=== PATIENT | male | born 1960 | race Caucasian/White ===

== ENCOUNTER 2018-04-26 10:11 | Emergency (ER) | payer OTHER, SELFPAY ==
[2018-04-26] VITALS (7 sets, daily range): BP systolic 131–153; BP diastolic 72–82; PULSE 102–131; RESP 12–19; TEMP 37.6–39.5; O2SAT 95–100; BMI 28.3
--- NOTE | 2018-04-26 10:46 | PC.NURSE ---
pt reports, onset of chills, bodyaches, , pt with chronic bronchitis, reports, chest tightness for couple of days, has been working vacuuming well house,. pt alert, slow to responds. temp 103.1. reports, had tylenol at 430am. noted multiple areas with echymosis neck and back, (green yellow echymosis) from cupping.
--- NOTE | 2018-04-26 10:48 | PC.NURSE ---
by nursing care partner
--- NOTE | 2018-04-26 10:54 | ED_ITS ---
HPI - SOB/Dyspnea General Chief Complaint: Shortness of Breath/Dyspnea Stated Complaint: SENT FROM [facility] (DEHYDRATED) Time Seen by Provider: 04/26/18 10:20 Source: patient Mode of arrival: ambulatory Limitations: no limitations History of Present Illness 57-year-old male, nonsmoker with history of multiple neck problems presents with a chief complaint of fever, chills, headache, sore throat, dry hacking cough and body aches for the past 24 hr. He has had nausea but no vomiting. He feels terrible and generally weak. He called the [place] doctor and they were unable to get him in so they sent him here for evaluation and stabilization. MD Complaint: cough Onset (ago): hour(s) Severity: moderate Consistency/Duration: constant Relieving factors: nothing Exacerbating factors: exertion Associated symptoms: fever, cough and nausea/vomiting Treatment prior to arrival: none Related Data Home oxygen amount: none Home Medications Medication Instructions Recorded Confirmed aspirin 81 mg PO QDAY #0 12/14/15 lisinopril 10 mg PO DAILY #0 12/14/15 04/26/18 ibuprofen #0 08/04/16 ACETAMINOPHEN 325 mg PO Q4H #0 09/16/16 cetirizine 10 mg PO QDAY #0 09/16/16 atorvastatin 40 mg PO DAILY 04/26/18 04/26/18 oxycodone-acetaminophen 1 tab PO BEDTIME PRN 04/26/18 04/26/18 Previous Rx's Medication Instructions Recorded duloxetine [Cymbalta] 30 mg PO SEE INSTRUCTIONS PRN #30 08/04/16 cap tramadol 0 mg PO SEE INSTRUCTIONS #30 tab 08/04/16 oseltamivir [Tamiflu] 75 mg PO BID 5 Days #10 cap 04/26/18 Allergies Allergy/AdvReac Type Severity Reaction Status Date / Time ciprofloxacin [From CIPRO] Allergy Severe RASH, Verified 04/26/18 10:17 ITCHING metronidazole [METRONIDAZOLE] Allergy Mild RASH, Verified 04/26/18 10:17 ITCHING Review of Systems Constitutional Reports chills, Reports fever(s), Reports headache(s), Denies lethargy and Denies weakness Eyes Denies change in vision, Denies eye discharge, Denies irritation and Denies loss of vision ENT Ears, Nose, Mouth, and Throat: Denies change in voice, Reports headache(s), Denies neck pain and Reports sore throat Cardiovascular Denies chest pain, Denies irregular heart rhythm, Denies lightheadedness, Denies palpitations, Denies dyspnea, Denies dyspnea on exertion and Denies orthopnea Respiratory Reports cough, Denies dyspnea, Denies dyspnea on exertion and Denies wheezing Gastrointestinal Gastrointestinal: Denies abdominal pain, Denies change in bowel habits, Denies diarrhea, Denies nausea and Denies vomiting Genitourinary Denies hematuria, Denies flank pain, Denies urinary incontinence and Denies urinary urgency Musculoskeletal Denies neck pain Integumentary/Breasts Denies pruritus, Denies erythema, Denies rash and Denies wounds Neurologic Denies confusion, Reports headache(s), Denies loss of vision and Denies weakness Psychiatric Denies anxiety, Denies confusion, Denies depression, Denies homicidal ideation and Denies suicidal ideation Endocrine Denies palpitations Hematologic/Lymphatic Denies easy bruising Allergic/Immunologic Denies wheezing PFSH Social History Smoking Status: Never smoker Social History Smoking Status: Never smoker Exam Narrative Exam Narrative: GENERAL: 57-year-old male, appears younger than stated age, appears to feel unwell. HEAD: Atraumatic. Normocephalic. No temporal or scalp tenderness. EYES: Pupils equal round and reactive. Extraocular motions intact. No scleral icterus. No injection or drainage. ENT: Nose without bleeding, purulent drainage or septal hematoma. Throat without erythema, tonsillar hypertrophy or exudate. Uvula midline. Airway patent. NECK: Trachea midline. No JVD or lymphadenopathy. Supple, nontender, no meningeal signs. CARDIOVASCULAR: Regular rate and rhythm without murmurs, gallops, or rubs. RESPIRATORY: Clear to auscultation. Breath sounds equal bilaterally. No wheezes, rales, or rhonchi. GASTROINTESTINAL: Abdomen soft, non-tender, nondistended. No hepato- splenomegaly, or palpable masses. No guarding. EXTREMITIES: No clubbing, cyanosis, or edema. No joint tenderness, effusion, or edema noted. BACK: Nontender without deformity or crepitance. No flank tenderness. NEURO: AOx3. SKIN: No rash or erythema. Initial Vital Signs Initial Vital Signs: Vital Signs Temperature 99.6 F 04/26/18 10:17 Pulse Rate 106 H 04/26/18 10:17 Respiratory Rate 16 04/26/18 10:17 Blood Pressure 153/72 H 04/26/18 10:17 Pulse Oximetry 97 04/26/18 10:17 Course Orders Ordered: ED Orders 04/26/18 10:32 Basic Metabolic Panel Stat Complete Blood Count AUTO DIFF Stat Procalcitonin Stat 04/26/18 10:36 Influenza A and B by PCR Rapid Stat 04/26/18 10:52 XR chest 2V Stat Discontinued Medications Sodium Chloride (Normal Saline 0.9%) 1,000 mls @ 1,000 mls/hr IV BOLUS ONE Stop: 04/26/18 11:50 Last Admin: 04/26/18 11:13 Dose: 1,000 mls/hr Ketorolac Tromethamine (Toradol) 15 mg IV NOW ONE Stop: 04/26/18 10:52 Last Admin: 04/26/18 11:13 Dose: 15 mg Vital Signs - 8 hr 04/26/18 10:17 04/26/18 11:03 04/26/18 11:18 Temperature 99.6 F 103.1 F H Pulse Rate 106 H 108 H 102 H Respiratory Rate 16 19 16 Blood Pressure 153/72 H Blood Pressure [Left Arm] 136/82 136/79 Pulse Oximetry 97 100 96 MDM - SOB/Dyspnea Lab Data Result diagrams: 04/26/18 10:32 04/26/18 10:32 Lab Results 04/26/18 04/26/18 04/26/18 Range/Units 10:32 10:32 10:32 WBC 4.3 L (4.5-11.0) X10^3/uL RBC 5.02 (4.5-5.9) X10^6/uL Hgb 14.7 (13.5-17.5) g/dL Hct 42.3 (41-53) % MCV 84.3 (80-100) fL MCH 29.4 (26-34) PG MCHC 34.8 (30-36) % RDW 13.1 (11.6-14.8) % Plt Count 138 L (150-400) X10^3/uL Neut % (Auto) 77.3 H (50-75) % Lymph % (Auto) 7.8 L (25-40) % [place] % (Auto) 14.4 H (3-14) % Eos % (Auto) 0.2 L (2-4) % Baso % (Auto) 0.3 (0-2) % Neut # (Auto) 3400 (7394-0156) /uL Lymph # (Auto) 300 L (4475-2519) /uL [place] # (Auto) 600 (0-900) /uL Eos # (Auto) 0 (0-450) /uL Baso # (Auto) 0 (0-100) /uL Sodium 134 L (137-145) mmol/L Potassium 3.9 (3.4-5.1) mmol/L Chloride 96 L (98-107) mmol/L Carbon Dioxide 27 (22-32) mmol/L BUN 11 (9-20) mg/dL Creatinine 1.00 (0.66-1.25) mg/dL Estimated GFR > 60.0 (>60) mL/min BUN/Creatinine Ratio 11.0 (6-22) Glucose 101 H (70-100) mg/dL Calcium 9.0 (8.4-10.2) mg/dL Procalcitonin < 0.05 (<0.5) ng/mL Influenza A & B (PCR) (Negative) 04/26/18 Range/Units 10:36 WBC (4.5-11.0) X10^3/uL RBC (4.5-5.9) X10^6/uL Hgb (13.5-17.5) g/dL Hct (41-53) % MCV (80-100) fL MCH (26-34) PG MCHC (30-36) % RDW (11.6-14.8) % Plt Count (150-400) X10^3/uL Neut % (Auto) (50-75) % Lymph % (Auto) (25-40) % [place] % (Auto) (3-14) % Eos % (Auto) (2-4) % Baso % (Auto) (0-2) % Neut # (Auto) (8291-3665) /uL Lymph # (Auto) (4972-6617) /uL [place] # (Auto) (0-900) /uL Eos # (Auto) (0-450) /uL Baso # (Auto) (0-100) /uL Sodium (137-145) mmol/L Potassium (3.4-5.1) mmol/L Chloride (98-107) mmol/L Carbon Dioxide (22-32) mmol/L BUN (9-20) mg/dL Creatinine (0.66-1.25) mg/dL Estimated GFR (>60) mL/min BUN/Creatinine Ratio (6-22) Glucose (70-100) mg/dL Calcium (8.4-10.2) mg/dL Procalcitonin (<0.5) ng/mL Influenza A & B (PCR) Positive, type a A (Negative) Urine Dip Bedside Urine Glucose Negative Bedside Urine Bilirubin - Negative Bedside Urine Ketone - Negative Urine Specific [place] 1.015 Bedside Urine Occult Blood +/- Bedside Urine pH 8 Bedside Urine Protein - Negative Bedside Urine Urobilinogen - Negative Bedside Urine Nitrite - Negative Bedside Urine Leukocytes - Negative Esterase Imaging Data Chest x-ray: Radiologist's impression: [address] [address] XRay Report Signed Patient: Yo Malagon [facility]#: [id number] : [id number]:[id number] Age/Sex: 57 / MDate of Service: 04/26/18 Loc: ED Accession Number: [id number] Procedure: XR chest 2V Ordering Provider: Kayden Canales D.O. PROCEDURE: XR CHEST 2V INDICATIONS: SOB, cough, fever TECHNIQUE: 2 views of the chest were acquired. COMPARISON: [facility], CHEST 1 VIEW, 09/16/2016, 19:32. FINDINGS: Surgical changes and devices: None. Lungs and pleura: Lungs are clear. No pleural effusions or pneumothorax. Mediastinum: Mediastinal contours are normal. Heart size is normal. Bones and chest wall: No suspicious bony abnormalities. Soft tissues appear unremarkable. IMPRESSION: Negative chest. No acute cardiopulmonary process is evident. Dictated by: Ben Chew M.D. on 04/26/2018 at 10:42 Approved by: Ben Chew M.D. on 04/26/2018 at 10:42 Discharge Plan Departure Patient Disposition: Home Clinical Impression: Influenza A Instructions: DI for Influenza -- Adult Activity Restrictions/Additional Instructions: *You have been diagnosed with [influenza a ] *What to do: *Take medications as directed *Follow up with your primary care provider in 2-3 days, call for an appointment. Let them know you were seen in the Emergency Department and that we ask that you be seen in follow up *Return to ER if you should have any new, worsening or concerning symptoms Prescriptions: New oseltamivir [Tamiflu] 75 mg capsule 75 mg PO BID 5 Days Qty: 10 RF: 0 No Action aspirin 81 MG tablet,delayed release (DR/EC) 81 mg PO QDAY Qty: 0 RF: 0 lisinopril 10 MG tablet 10 mg PO DAILY Qty: 0 RF: 0 ibuprofen 400 MG tablet Qty: 0 RF: 0 tramadol 50 MG tablet PO SEE INSTRUCTIONS Qty: 30 RF: 0 duloxetine [Cymbalta] 30 MG capsule,delayed release(DR/EC) 30 mg PO SEE INSTRUCTIONS PRNQty: 30 RF: 0 cetirizine 10 MG tablet 10 mg PO QDAY Qty: 0 RF: 0 ACETAMINOPHEN 325 mg PO Q4H Qty: 0 RF: 0 atorvastatin 40 mg tablet 40 mg PO DAILY RF: 0 oxycodone-acetaminophen 5-325 mg tablet 1 tab PO BEDTIME PRN (Reason: pain) RF: 0 Referrals: Josse Luna, [Primary Care Provider] -
[2018-04-26 11:00] LABS: Add Manual Diff / Slide Review NO; Basophils Absolute Auto 0 /uL (0-100); Basophils Percent Auto 0.3 % (0-2); Eosinophils Absolute Auto 0 /uL (0-450); Eosinophils Percent Auto 0.2 % (2-4); Hematocrit 42.3 % (41-53); Hemoglobin 14.7 g/dL (13.5-17.5); Lymphocytes Absolute Auto 300 /uL (1100-4500); Lymphocytes Percent Auto 7.8 % (25-40); Mean Corpuscular HGB Conc 34.8 % (30-36); Mean Corpuscular Hemoglobin 29.4 PG (26-34); Mean Corpuscular Volume 84.3 fL (80-100); Monocytes Absolute Auto 600 /uL (0-900); Monocytes Percent Auto 14.4 % (3-14); Neutrophils Absolute Auto 3400 /uL (1500-7000); Neutrophils Percent Auto 77.3 % (50-75); Platelet Count 138 X10^3/uL (150-400); Red Blood Cell Count 5.02 X10^6/uL (4.5-5.9); Red Cell Distribution Width 13.1 % (11.6-14.8); White Blood Cell Count 4.3 X10^3/uL (4.5-11.0)
[2018-04-26 11:06] LABS: Blood Urea Nitrogen 11 mg/dL (9-20); Carbon Dioxide 27 mmol/L (22-32); Chloride 96 mmol/L (98-107); Estimated Glomerular Filt Rate > 60.0 mL/min (>60); Glucose 101 mg/dL (70-100); HEMOLYSIS < 15 (0-50); Potassium 3.9 mmol/L (3.4-5.1); Sodium 134 mmol/L (137-145)
[2018-04-26] MEDS: SODIUM CHLORIDE 0.9% 1,000 ML 1000 ML IV (11:13)
[2018-04-26] MEDS: KETOROLAC 60 MG/2 ML VIAL 15 MG IV (11:13)
[2018-04-26 11:27] LABS: Procalcitonin < 0.05 ng/mL (<0.5)
--- NOTE | 2018-04-26 12:04 | PC.NURSE ---
pt infusing normal saline, heart rate at 130's, pt tolerating drinking water , denies nausea. temp 100.6
== END 2018-04-26 12:38 | disposition home or self-care (01) ==
PROVIDERS: Emergency Provider Emergency Medicine; Family Provider Orthopaedic Surgery; PCP Orthopaedic Surgery
DX: J10.1 Influenza due to other identified influenza virus with other respiratory manifestations (principal)
CPT/HCPCS: 36591; 71046; 80048; 81003; 84145; 85025; 87400; 93005; 93041; 96361; 96374; 99284; 99285; J1885

== ENCOUNTER 2019-12-27 10:24 | Emergency (ER) | payer OTHER, SELFPAY ==
[2019-12-27] VITALS (10 sets, daily range): BP systolic 127–156; BP diastolic 76–85; PULSE 68–77; RESP 16–18; TEMP 37; O2SAT 95–98; BMI 27.4
--- NOTE | 2019-12-27 11:02 | PC.NURSE ---
Pt here with R flank/abdominal pain and low urine output
--- NOTE | 2019-12-27 11:30 | DI.US.S_ITS ---
PROCEDURE: US RENAL COMPLETE INDICATIONS: R sided stone, dx two days ago, inc flank pain TECHNIQUE: Real-time scanning was performed of the kidneys and bladder, with image documentation. COMPARISON: [facility], CR, SPINE LUMB 2 OR 3VW, 04/27/2016, 15:12. [facility], MR, L-SPINE WITHOUT CONTRAST, 04/15/2016, 15:51. [facility], CR, XR KUB, 12/27/2019, 11:25. FINDINGS: Kidneys: Kidneys are normal in size. Right kidney measures 11.6 cm long; left kidney measures 11.1 cm long. Right renal cortical thickness is 1.7 cm; left renal cortical thickness is 1.9 cm. Renal cortical echotexture is normal. No solid renal mass. Mild right kidney hydronephrosis. No hydronephrosis on the left. Bladder: Patient is unable to void. Bladder is mostly decompressed. 20 cc volume. There is a 8 mm calculus at the right bladder. Miscellaneous: No free pelvic fluid. IMPRESSION: Mild right hydronephrosis. 8 mm calculus at the right lateral bladder is suspicious for obstructing calculus. Dictated by: Prudencio Crews M.D. on 12/27/2019 at 12:48 Approved by: Prudencio Crews M.D. on 12/27/2019 at 12:51
--- NOTE | 2019-12-27 11:30 | DI.RAD.S_ITS ---
PROCEDURE: XR KUB INDICATIONS: R sided kidney stone x 2 days TECHNIQUE: One view of the abdomen acquired. COMPARISON: [facility] [place], CR, SPINE LUMB 2 OR 3VW, 04/27/2016, 15:12. FINDINGS: Surgical changes and devices: None. Bowel: Bowel gas pattern is normal. Soft tissues: There is a calculus in the region of the right bladder measuring approximately 0.3 cm which is new compared to radiograph from 2017. No suspicious abdominal calcifications. Visualized solid organ contours appear normal in size. Bones: No suspicious bony lesions. IMPRESSION: Suspect small obstructing calculus at the right UVJ. If clinically indicated findings could be confirmed with CT KUB. Dictated by: Prudencio Crews M.D. on 12/27/2019 at 12:51 Approved by: Prudencio Crews M.D. on 12/27/2019 at 12:52
[2019-12-27 11:37] LABS: Add Manual Diff / Slide Review NO; Basophils Absolute Auto 0 /uL (0-100); Basophils Percent Auto 0.1 % (0-2); Eosinophils Absolute Auto 0 /uL (0-450); Eosinophils Percent Auto 0.1 % (2-4); Hematocrit 40.4 % (41-53); Hemoglobin 13.8 g/dL (13.5-17.5); Lymphocytes Absolute Auto 800 /uL (1100-4500); Lymphocytes Percent Auto 7.7 % (25-40); Mean Corpuscular HGB Conc 34.1 % (30-36); Mean Corpuscular Hemoglobin 28.9 PG (26-34); Mean Corpuscular Volume 84.6 fL (80-100); Monocytes Absolute Auto 900 /uL (0-900); Monocytes Percent Auto 8.8 % (3-14); Neutrophils Absolute Auto 8600 /uL (1500-7000); Neutrophils Percent Auto 83.3 % (50-75); Platelet Count 181 X10^3/uL (150-400); Red Blood Cell Count 4.77 X10^6/uL (4.5-5.9); Red Cell Distribution Width 13.4 % (11.6-14.8); White Blood Cell Count 10.4 X10^3/uL (4.5-11.0)
[2019-12-27] MEDS: ONDANSETRON 4 MG/2 ML INJ IV (11:39)
[2019-12-27] MEDS: HYDROMORPHONE 1 MG INJ 0.5 MG IV (11:39)
[2019-12-27] MEDS: SODIUM CHLORIDE 0.9% 1,000 ML 1000 ML IV (11:39)
[2019-12-27 11:42] LABS: Alanine Aminotransferase 36 IU/L (<50); Albumin 4.2 g/dL (3.5-5.0); Albumin Globulin Ratio 1.3 (1.0-2.8); Alkaline Phosphatase 70 U/L (38-126); Amylase 104 U/L (30-110); Aspartate Aminotransferase 39 IU/L (17-59); BUN Creatinine Ratio 13.6 (6-22); Bilirubin Total 1.4 mg/dL (0.2-1.3); Blood Urea Nitrogen 15 mg/dL (9-20); Calcium 9.1 mg/dL (8.4-10.2); Carbon Dioxide 31 mmol/L (22-32); Chloride 97 mmol/L (98-107); Estimated Glomerular Filt Rate > 60.0 mL/min (>60); Globulin 3.3 g/dL (1.7-4.1); Glucose 130 mg/dL (70-100); HEMOLYSIS 23 (0-50); Lipase 108 U/L (23-300); Potassium 4.3 mmol/L (3.4-5.1); Sodium 132 mmol/L (137-145); Total Protein 7.5 g/dL (6.3-8.2)
[2019-12-27 11:58] LABS: Appearance Urine UA Slightly Cloudy; Color Urine UA ORANGE
[2019-12-27 12:08] LABS: Amorphous Sediment Urine 3+; Bacteria Urine Occasional (0-1); Culture Indicated Urine Specimen Cultured; RBC Urine 5-10/HPF (0-5/HPF); WBC Urine 0-1/HPF (0-5/HPF)
--- NOTE | 2019-12-27 12:38 | ED.MALEGU ---
HPI - Male Genitourinary <Miranda Davies, [employer]-BC - Last Filed: 12/27/19 14:53> General Chief complaint: Urogenital-Male Stated complaint: Kidney stone Lower Right side Time Seen by Provider: 12/27/19 10:31 Source: patient Mode of arrival: Family Vehicle Limitations: no limitations History of Present Illness HPI Narrative: The patient is a 59-year-old male nonsmoker with history of hypertension hyperlipidemia who presents with a chief complaint of a kidney stone his right side. He was seen and evaluated in outside facility at [facility] on Monday. He states he was going to follow up with primary care provider, who could refer him to Urology. He denies any dysuria but states he is taking [id number] azo. He took prescribed Percocet just prior to arrival. He complains of nausea, no vomiting. He is mostly concerned about his kidney function as he states that he did this decreased urine output yesterday. He is also concerned about kidney function. The [place] a urology referral Related Data Home Medications Medication Instructions Recorded Confirmed aspirin 81 mg PO QDAY #0 12/14/15 lisinopril 10 mg PO DAILY #0 12/14/15 04/26/18 ibuprofen #0 08/04/16 ACETAMINOPHEN 325 mg PO Q4H #0 09/16/16 cetirizine 10 mg PO QDAY #0 09/16/16 atorvastatin 40 mg PO DAILY 04/26/18 04/26/18 oxycodone-acetaminophen 1 tab PO BEDTIME PRN 04/26/18 04/26/18 Previous Rx's Medication Instructions Recorded duloxetine [Cymbalta] 30 mg PO SEE INSTRUCTIONS PRN #30 08/04/16 cap tramadol 0 mg PO SEE INSTRUCTIONS #30 tab 08/04/16 ketorolac 10 mg PO TID PRN #14 tab 12/27/19 ondansetron 4 mg PO Q6H PRN #14 tab 12/27/19 oxycodone-acetaminophen [Percocet] 1 tab PO Q4-6H PRN #7 tab 12/27/19 Allergies Allergy/AdvReac Type Severity Reaction Status Date / Time ciprofloxacin [From CIPRO] Allergy Severe RASH, Verified 12/27/19 10:42 ITCHING metronidazole [METRONIDAZOLE] Allergy Mild RASH, Verified 12/27/19 10:42 ITCHING Review of Systems <[facility] - Last Filed: 12/27/19 14:53> Review of Systems Narrative: GENERAL: Denies chills, fatigue, malaise, fever, sweats. HEENT: Denies sinus pain, ear pain, sore throat, difficulty swallowing, dizziness. RESPIRATORY: Denies dyspnea, cough, wheezing, hemoptysis, sputum. CARDIOVASCULAR: Denies chest pain, palpitations, orthopnea, edema, GASTROINTESTINAL: See HPI : Denies dysuria, frequency, incontinence, hematuria, urinary retention. MUSCULOSKELETAL: denies weakness, joint pain, or bony pain SKIN: Denies rash, skin lesions, or other NEUROLOGIC: Denies weakness, headache, numbness, change in speech, confusion, seizures, incoordination. PSYCHIATRIC: No concerning psychosocial issues. 12 point review of systems is negative except for those stated above Patient History <[facility]PR[facility] - Last Filed: 12/27/19 14:53> Social History Smoking Status: Never smoker Smoking Status: Never smoker alcohol intake frequency: 0-2 drinks per day Substance Use Type: does not use Exam <[facility] - Last Filed: 12/27/19 14:53> Narrative Exam Narrative: GENERAL: This is a well-nourished, well-developed patient, in no acute distress HEAD: Atraumatic. Normocephalic. No temporal or scalp tenderness. EYES: Pupils equal round and reactive. Extraocular motions intact. No scleral icterus. No injection or drainage. ENT: Nose without bleeding, purulent drainage or septal hematoma. Throat without erythema, tonsillar hypertrophy or exudate. Uvula midline. Airway patent. Wearing a mask. NECK: Trachea midline. No JVD or lymphadenopathy. Supple, nontender, no meningeal signs. CARDIOVASCULAR: Regular rate and rhythm without murmurs, gallops, or rubs. RESPIRATORY: Clear to auscultation. Breath sounds equal bilaterally. No wheezes, rales, or rhonchi. No cough. No increased respiratory effort. No accessory muscle use. GASTROINTESTINAL: Abdomen soft, diffuse tenderness to right lower quadrant palpation, nondistended. No hepato-splenomegaly, or palpable masses. No guarding. Active bowel sounds all 4 quadrants EXTREMITIES: No clubbing, cyanosis, or edema. No joint tenderness, effusion, or edema noted. BACK: Nontender without deformity or crepitance. No flank tenderness. NEURO: AOx3. SKIN: No rash or erythema on visible skin Initial Vital Signs Initial Vital Signs: Vital Signs Blood Pressure 156/76 H 12/27/19 10:29 <Xiomara Lora DO - Last Filed: 12/29/19 07:03> Initial Vital Signs Initial Vital Signs: Vital Signs Blood Pressure 156/76 H 12/27/19 10:29 Scores <BHUMI GrullonBC - Last Filed: 12/27/19 14:53> GCS Davidson coma scale eye opening: Spontaneous Davidson coma scale verbal response: Orientated Davidson coma scale motor response: Obey commands Davidson coma scale total score: 15 Course <BHUMI GrullonBC - Last Filed: 12/27/19 14:53> Course Course Narrative: Review noted imaging or lab work from outside facility obtained on 12/23/2019. Creatinine at that point is 1.0. Imaging concerning for 4 middle and calculus at the right UVJ with mild right-sided hydronephrosis. Orders Ordered: Discontinued Medications Hydromorphone HCl (Dilaudid) 0.5 mg IV NOW ONE Stop: 12/27/19 11:30 Last Admin: 12/27/19 11:39 Dose: 0.5 mg Documented by: HORACEINOR Sodium Chloride (Normal Saline 0.9%) 1,000 mls @ 1,000 mls/hr IV BOLUS ONE Stop: 12/27/19 12:28 Last Infusion: 12/27/19 12:41 Dose: 0 mls/hr Documented by: Admin: 12/27/19 11:39 Dose: 1,000 mls/hr Documented by: MMINOR Ketorolac Tromethamine (Toradol) 30 mg IV NOW ONE Stop: 12/27/19 13:24 Last Admin: 12/27/19 13:28 Dose: 30 mg Documented by: MMINOR Ondansetron HCl (Zofran) 4 mg IV NOW ONE Stop: 12/27/19 11:30 Last Admin: 12/27/19 11:39 Dose: 4 mg Documented by: MMINOR Vital Signs Vital signs: Vital Signs - 8 hr 12/27/19 10:29 12/27/19 10:30 12/27/19 10:35 Temperature 98.6 F Pulse Rate 77 69 Respiratory Rate 18 Blood Pressure 156/76 H 156/76 H Pulse Oximetry 98 98 12/27/19 11:00 12/27/19 11:30 12/27/19 12:10 Temperature Pulse Rate 69 68 73 Respiratory Rate Blood Pressure 129/80 131/80 Pulse Oximetry 95 97 98 12/27/19 12:30 12/27/19 13:00 12/27/19 13:30 Temperature Pulse Rate 68 68 77 Respiratory Rate Blood Pressure 127/78 130/76 Pulse Oximetry 96 96 98 12/27/19 13:51 Temperature Pulse Rate 73 Respiratory Rate 16 Blood Pressure 133/85 Pulse Oximetry 98 <Xiomara Lora DO - Last Filed: 12/29/19 07:03> Orders Ordered: Discontinued Medications Hydromorphone HCl (Dilaudid) 0.5 mg IV NOW ONE Stop: 12/27/19 11:30 Last Admin: 12/27/19 11:39 Dose: 0.5 mg Documented by: TIFFANIE Sodium Chloride (Normal Saline 0.9%) 1,000 mls @ 1,000 mls/hr IV BOLUS ONE Stop: 12/27/19 12:28 Last Infusion: 12/27/19 12:41 Dose: 0 mls/hr Documented by: Admin: 12/27/19 11:39 Dose: 1,000 mls/hr Documented by: TIFFANIE Ketorolac Tromethamine (Toradol) 30 mg IV NOW ONE Stop: 12/27/19 13:24 Last Admin: 12/27/19 13:28 Dose: 30 mg Documented by: TIFFANIE Ondansetron HCl (Zofran) 4 mg IV NOW ONE Stop: 12/27/19 11:30 Last Admin: 12/27/19 11:39 Dose: 4 mg Documented by: TIFFANIE Vital Signs Vital signs: Vital Signs - 8 hr 12/27/19 10:29 12/27/19 10:30 12/27/19 10:35 Temperature 98.6 F Pulse Rate 77 69 Respiratory Rate 18 Blood Pressure 156/76 H 156/76 H Pulse Oximetry 98 98 12/27/19 11:00 12/27/19 11:30 12/27/19 12:10 Temperature Pulse Rate 69 68 73 Respiratory Rate Blood Pressure 129/80 131/80 Pulse Oximetry 95 97 98 12/27/19 12:30 12/27/19 13:00 12/27/19 13:30 Temperature Pulse Rate 68 68 77 Respiratory Rate Blood Pressure 127/78 130/76 Pulse Oximetry 96 96 98 12/27/19 13:51 Temperature Pulse Rate 73 Respiratory Rate 16 Blood Pressure 133/85 Pulse Oximetry 98 MDM - Male Genitourinary <Miranda Davies, [employer]NER- - Last Filed: 12/27/19 14:53> Lab Data Attestation: I reviewed the patient's lab results. Result diagrams: 12/27/19 10:30 12/27/19 10:30 Labs: Lab Results 12/27/19 12/27/19 12/27/19 Range/Units 10:30 10:30 11:50 WBC 10.4 (4.5-11.0) X10^3/uL RBC 4.77 (4.5-5.9) X10^6/uL Hgb 13.8 (13.5-17.5) g/dL Hct 40.4 L (41-53) % MCV 84.6 (80-100) fL MCH 28.9 (26-34) PG MCHC 34.1 (30-36) % RDW 13.4 (11.6-14.8) % Plt Count 181 (150-400) X10^3/uL Neut % (Auto) 83.3 H (50-75) % Lymph % (Auto) 7.7 L (25-40) % Nuckolls % (Auto) 8.8 (3-14) % Eos % (Auto) 0.1 L (2-4) % Baso % (Auto) 0.1 (0-2) % Neut # (Auto) 8600 H (6078-8824) /uL Lymph # (Auto) 800 L (7865-0904) /uL Nuckolls # (Auto) 900 (0-900) /uL Eos # (Auto) 0 (0-450) /uL Baso # (Auto) 0 (0-100) /uL Sodium 132 L (137-145) mmol/L Potassium 4.3 (3.4-5.1) mmol/L Chloride 97 L (98-107) mmol/L Carbon Dioxide 31 (22-32) mmol/L BUN 15 (9-20) mg/dL Creatinine 1.10 (0.66-1.25) mg/dL Estimated GFR > 60.0 (>60) mL/min BUN/Creatinine Ratio 13.6 (6-22) Glucose 130 H (70-100) mg/dL Calcium 9.1 (8.4-10.2) mg/dL Total Bilirubin 1.4 H (0.2-1.3) mg/dL AST 39 (17-59) IU/L ALT 36 (<50) IU/L Alkaline Phosphatase 70 (38-126) U/L Total Protein 7.5 (6.3-8.2) g/dL Albumin 4.2 (3.5-5.0) g/dL Globulin 3.3 (1.7-4.1) g/dL Albumin/Globulin Ratio 1.3 (1.0-2.8) Amylase 104 (30-110) U/L Lipase 108 (23-300) U/L Urine Color Jackson Urine Appearance Slightly cloudy Urine pH Gut Dropper Ur Specific [place] Gut Dropper Urine Protein Gut Dropper Urine Glucose (UA) Gut Dropper Urine Ketones Gut Dropper Urine Occult Blood Gut Dropper Urine Nitrate Gut Dropper Urine Bilirubin Gut Dropper Urine Urobilinogen Gut Dropper Ur Leukocyte Esterase Gut Dropper Urine RBC 5-10/hpf H (0-5/HPF) Urine WBC 0-1/hpf (0-5/HPF) Amorphous Sediment 3+ Urine Bacteria Occasional (0-1) (None) Ur Culture Indicated? Specimen cultured Imaging Data Renal ultrasound: Radiologist's Impression: [facility] [address] [place] [id number] Ultrasound Report Signed Patient: Yo Malagon [facility]#: [id number] : 1Acct:[id number] Age/Sex: 59 / MDate of Service: 12/27/19 Loc: ED Accession Number: [id number] Procedure: US renal complete Ordering Provider: Miranda Davies-BC PROCEDURE: US RENAL COMPLETE INDICATIONS: R sided stone, dx two days ago, inc flank pain TECHNIQUE: Real-time scanning was performed of the kidneys and bladder, with image documentation. COMPARISON: [facility] , SPINE LUMB 2 OR 3VW, 04/27/2016, 15:12. [facility], MR, L-SPINE WITHOUT CONTRAST, 04/15/2016, 15:51. [facility], CR, XR KUB, 12/27/2019, 11:25. FINDINGS: Kidneys: Kidneys are normal in size. Right kidney measures 11.6 cm long; left kidney measures 11.1 cm long. Right renal cortical thickness is 1.7 cm; left renal cortical thickness is 1.9 cm. Renal cortical echotexture is normal. No solid renal mass. Mild right kidney hydronephrosis. No hydronephrosis on the left. Bladder: Patient is unable to void. Bladder is mostly decompressed. 20 cc volume. There is a 8 mm calculus at the right bladder. Miscellaneous: No free pelvic fluid. IMPRESSION: Mild right hydronephrosis. 8 mm calculus at the right lateral bladder is suspicious for obstructing calculus. Dictated by: Prudencio Crews M.D. on 12/27/2019 at 12:48 Approved by: Prudencio Crews M.D. on 12/27/2019 at 12:51 XR KUB: Radiologist's Impression: [address] [place] [id number] XRay Report Signed Patient: Yo Malagon [facility]#: [id number] : 1960cct:[id number] Age/Sex: 59 / MDate of Service: 12/27/19 Loc: ED Accession Number: [id number] Procedure: XR KUB Ordering Provider: Miranda Davies PROCEDURE: XR KUB INDICATIONS: R sided kidney stone x 2 days TECHNIQUE: One view of the abdomen acquired. COMPARISON: [facility], , SPINE LUMB 2 OR 3VW, 04/27/2016, 15:12. FINDINGS: Surgical changes and devices: None. Bowel: Bowel gas pattern is normal. Soft tissues: There is a calculus in the region of the right bladder measuring approximately 0.3 cm which is new compared to radiograph from 2017. No suspicious abdominal calcifications. Visualized solid organ contours appear normal in size. Bones: No suspicious bony lesions. IMPRESSION: Suspect small obstructing calculus at the right UVJ. If clinically indicated findings could be confirmed with CT KUB. Dictated by: Prudencio Crews M.D. on 12/27/2019 at 12:51 Approved by: Prudencio Crews M.D. on 12/27/2019 at 12:52 [facility] [place] Narrative Medical decision making narrative: The patient is a 59-year-old male who presents with a chief complaint of continued right lower quadrant pain and decreased urine output since being times with the kidney stone 4 days ago at an outside facility. Records were reviewed, patient's lab work is reassuring with his creatinine of 1.1. Four days ago was 1.0. Given the knee just head CT, elected to hold off on repeat CT at this point time. Ultrasound and KUB x-ray are concerning for small bite ureteral stone, possibility of stone and bladder as well. However patient is hemodynamically stable, afebrile, the renal function and no signs of urinary tract infection or infected stone. I encouraged him to follow up with primary care provider in the next few days and he may benefit from the urology referral being done by the PCP at this point time. Patient was given prescriptions of ketorolac and Zofran, did give a small continuation of his Percocet as well. Discussed at length coming back to the ER for acute concerns such as signs of infection, inability keep down fluids etcetera. Patient has no questions or concerns upon discharge and states understanding return precautions as well as follow-up care. <Xiomara Lora, - Last Filed: 12/29/19 07:03> Lab Data Labs: Lab Results 12/27/19 12/27/19 12/27/19 Range/Units 10:30 10:30 11:50 WBC 10.4 (4.5-11.0) X10^3/uL RBC 4.77 (4.5-5.9) X10^6/uL Hgb 13.8 (13.5-17.5) g/dL Hct 40.4 L (41-53) % MCV 84.6 (80-100) fL MCH 28.9 (26-34) PG MCHC 34.1 (30-36) % RDW 13.4 (11.6-14.8) % Plt Count 181 (150-400) X10^3/uL Neut % (Auto) 83.3 H (50-75) % Lymph % (Auto) 7.7 L (25-40) % Nuckolls % (Auto) 8.8 (3-14) % Eos % (Auto) 0.1 L (2-4) % Baso % (Auto) 0.1 (0-2) % Neut # (Auto) 8600 H (8841-2326) /uL Lymph # (Auto) 800 L (8044-7931) /uL Nuckolls # (Auto) 900 (0-900) /uL Eos # (Auto) 0 (0-450) /uL Baso # (Auto) 0 (0-100) /uL Sodium 132 L (137-145) mmol/L Potassium 4.3 (3.4-5.1) mmol/L Chloride 97 L (98-107) mmol/L Carbon Dioxide 31 (22-32) mmol/L BUN 15 (9-20) mg/dL Creatinine 1.10 (0.66-1.25) mg/dL Estimated GFR > 60.0 (>60) mL/min BUN/Creatinine Ratio 13.6 (6-22) Glucose 130 H (70-100) mg/dL Calcium 9.1 (8.4-10.2) mg/dL Total Bilirubin 1.4 H (0.2-1.3) mg/dL AST 39 (17-59) IU/L ALT 36 (<50) IU/L Alkaline Phosphatase 70 (38-126) U/L Total Protein 7.5 (6.3-8.2) g/dL Albumin 4.2 (3.5-5.0) g/dL Globulin 3.3 (1.7-4.1) g/dL Albumin/Globulin Ratio 1.3 (1.0-2.8) Amylase 104 (30-110) U/L Lipase 108 (23-300) U/L Urine Color Jackson Urine Appearance Slightly cloudy Urine pH Gut Dropper Ur Specific [place] Gut Dropper Urine Protein Gut Dropper Urine Glucose (UA) Gut Dropper Urine Ketones Gut Dropper Urine Occult Blood Gut Dropper Urine Nitrate Gut Dropper Urine Bilirubin Gut Dropper Urine Urobilinogen Gut Dropper Ur Leukocyte Esterase Gut Dropper Urine RBC 5-10/hpf H (0-5/HPF) Urine WBC 0-1/hpf (0-5/HPF) Amorphous Sediment 3+ Urine Bacteria Occasional (0-1) (None) Ur Culture Indicated? Specimen cultured Discharge Plan Departure Patient Disposition: Home Clinical Impression: Right ureteral calculus Discharge Date/Time: 12/27/19 13:51 Instructions: DI for Kidney Stones Activity Restrictions/Additional Instructions: Thank you for trusting us with your care today. As discussed, it is suspicious that you might have a right lower kidney stone, as well as a stone in your bladder. Please follow-up with primary care provider in the next few days. You may benefit from a urology referral. I sent 3 prescriptions to [facility] in [place], a narcotic for pain, ketorolac for pain as well as ondansetron for nausea I have given you a prescription of Toradol. This is an NSAID. Do not combine it with other NSAIDs such as Aleve or ibuprofen. I suggest taking it with some food, as it can irritate your stomach. I have given you a prescription of a narcotic for pain. Be aware that this can be constipating and sedating. I encouraged taking with a stool softener, pushing fluids and fiber. Do not take and drive, operate heavy machinery, etc. Do not combine it with any other sedating substances such as alcohol. The combination of narcotics and alcohol and/or other sedatives can be lethal. Please be aware that the ondansetron can also be constipating. Please come back to emergency department for any acute concerns such as inability keep down fluids, please monitor for burning when you urinate etcetera Prescriptions: New ketorolac 10 mg tablet 10 mg PO TID PRN (Reason: pain) Qty: 14 RF: 0 ondansetron 4 mg tablet,disintegrating 4 mg PO Q6H PRN (Reason: nausea and vomiting) Qty: 14 RF: 0 oxycodone-acetaminophen [Percocet] 5-325 mg tablet 1 tab PO Q4-6H PRN (Reason: pain) Qty: 7 RF: 0 No Action aspirin 81 MG tablet,delayed release (DR/EC) 81 mg PO QDAY Qty: 0 RF: 0 lisinopril 10 MG tablet 10 mg PO DAILY Qty: 0 RF: 0 ibuprofen 400 MG tablet Qty: 0 RF: 0 tramadol 50 MG tablet 0 mg PO SEE INSTRUCTIONS Qty: 30 RF: 0 duloxetine [Cymbalta] 30 MG capsule,delayed release(DR/EC) 30 mg PO SEE INSTRUCTIONS PRNQty: 30 RF: 0 cetirizine 10 MG tablet 10 mg PO QDAY Qty: 0 RF: 0 ACETAMINOPHEN 325 mg PO Q4H Qty: 0 RF: 0 atorvastatin 40 mg tablet 40 mg PO DAILY RF: 0 oxycodone-acetaminophen 5-325 mg tablet 1 tab PO BEDTIME PRN (Reason: pain) RF: 0 Referrals: Josse Luna DO [Primary Care Provider] - Sunil Good [Non-Staff] - <Xiomara Lora DO - Last Filed: 12/29/19 07:03> Cosign ED Attending Amarilisature Attestation: I was immediately available in the department for consultation. Documentation has been reviewed. I agree with assessment and plan.
[2019-12-27] MEDS: KETOROLAC 60 MG/2 ML VIAL 30 MG IV (13:28)
== END 2019-12-27 13:51 | disposition home or self-care (01) ==
PROVIDERS: Emergency Provider Nurse Practitioner Family; Family Provider Orthopaedic Surgery; PCP Orthopaedic Surgery
DX: N20.1 Calculus of ureter (principal)
CPT/HCPCS: 36415; 51798; 74018; 76770; 80053; 81001; 82150; 83690; 85025; 87086; 96361; 96374; 96375; 99284; J1170; J1885; J2405

== ENCOUNTER → 2020-05-04 09:48 | Outpatient (CLI) | payer OTHER, SELFPAY ==
[2020-05-04 11:52] LABS: COVID19 -Nasal RAPID Negative (Negative)
== END ==
PROVIDERS: Family Provider Orthopaedic Surgery; PCP Orthopaedic Surgery; Visit Provider Specialist
DX: Z20.822 Contact with and (suspected) exposure to COVID-19 (principal)
CPT/HCPCS: 87635; C9803

== ENCOUNTER 2020-05-05 07:24 | Day surgery (SDC) | payer OTHER, SELFPAY ==
--- NOTE | 2020-05-05 | PATH_ITS ---
[facility] Accession Number: [id number] . 01 Material submitted: . body - 65 MM . 01 Clinical history: . SDC . 02 Diagnosis: Colon, 65 mm, Biopsy: Inflammatory polyp. Additional levels were examined. MRV 05/08/2020 1503 Local . 02 Electronically signed: . Arabella Walker MD, Pathologist NPI- [id number] . 01 Gross description: . The specimen is received in formalin, labeled 65 mm and consists of two zhu-pink fragments of soft tissue measuring 0.7 x 0.6 x 0.3 cm in aggregate. The specimen is entirely submitted in cassette A1. ([id number]) /MRV 05/06/2020 0951 Local . 02 Pathologist provided ICD-10: K63.5 . 02 CPT . 696674 Performed at: 01 [facility] [address] [facility], [place], [place] [id number] MD Delgado Ervin MD Phone: [phone] Performed at: 02 [facility] [address] [place], [place] [id number] MD Arabella Walker MD Phone: [phone]
[2020-05-05 07:37] VITALS: BP 138/82; PULSE 73; RESP 18; TEMP 36.6; O2SAT 98; BMI 27.4
[2020-05-05] MEDS: LACTATED RINGERS 1,000 ML 200 ML IV (07:58)
--- NOTE | 2020-05-05 08:28 | PM.HP.1 ---
History of Present Illness History of Present Illness Date Patient Seen: 05/05/20 Time Patient Seen: 08:28 [place] [facility] [place]arrative: The patient is a gentleman here for screening colonoscopy. His last exam was 10 years ago. No history of polyps and no family history of colon cancer. Patient History Medical History (Updated 05/05/20 @ 08:30 by Ayush Chaudhari MD) Hypertension Surgical History (Updated 05/05/20 @ 08:29 by Ayush Chaudhari MD) History of neck surgery Family & Social History Social History: household members spouse Tobacco & Substance use: Smoking Status Never smoker alcohol intake former alcohol intake frequency 0-2 drinks per day Substance Use Type does not use Meds Home Medications and Allergies Home Medications Medication Instructions Recorded Confirmed Type aspirin 81 mg PO QDAY #0 12/14/15 05/05/20 History lisinopril 10 mg PO DAILY #0 12/14/15 04/26/18 History duloxetine [Cymbalta] 30 mg PO SEE INSTRUCTIONS PRN #30 08/04/16 Rx cap ibuprofen 400 mg PO BID #0 08/04/16 05/05/20 History ACETAMINOPHEN 325 mg PO Q4H #0 09/16/16 05/05/20 History atorvastatin 40 mg PO DAILY 04/26/18 05/05/20 History oxycodone-acetaminophen 1 tab PO BEDTIME PRN 04/26/18 05/05/20 History Allergies Allergy/AdvReac Type Severity Reaction Status Date / Time ciprofloxacin [From CIPRO] Allergy Severe RASH, Verified 05/05/20 07:36 ITCHING metronidazole [METRONIDAZOLE] Allergy Mild RASH, Verified 05/05/20 07:36 ITCHING Review of Systems Review of Systems Narrative: Chronic neck pain due to cervical disease. Hypertension and elevated cholesterol. ROS: Yes All systems reviewed with the patient and are negative except as otherwise documented Exam Vital Signs (past 8 hours): - 05/05/20 07:37 Temperature 97.9 F Pulse Rate 73 Respiratory Rate 18 Blood Pressure 138/82 Pulse Oximetry 98 Oxygen Delivery Method Room Air Narrative Exam Narrative: Pleasant cooperative patient no apparent distress. Lungs are clear to auscultation. No rales or rhonchi. Heart regular rate and rhythm no murmur gallop. Abdomen is soft nontender without mass. No obvious hernias. Patient is alert and oriented x3. Assessment & Plan Assessment & Plan narrative: The patient for a screening colonoscopy. I have discussed the procedure with them. Risks of bleeding, perforation which would necessitate major operation, failure to find remove all lesions, the potential tattoo were all discussed. All questions were answered. They wished to proceed.
--- NOTE | 2020-05-05 08:36 | PM.PREOP ---
Pre-operative Note COVID-19 COVID-19 status: Negative Result date/Date tested (Pos, Neg/Pending): 05/04/20 Interval Note History & Physical reviewed/Exam performed by Physician: Yes Changes to H&P: No ASA Class (for procedural sedation): II
[2020-05-05] MEDS: MIDAZOLAM 5 MG/5 ML VIAL IV (08:44)
[2020-05-05] MEDS: fentaNYL 250 MCG/5 ML INJ IV (08:44)
--- NOTE | 2020-05-05 09:00 | PM.OP.ENDO ---
Operative Date/Time/Diagnoses Date of procedure: 05/05/20 Time of procedure: 09:00 Pre-op diagnosis: Screening Post-op diagnosis: same (One small polyp. Occasional diverticulosis.) Procedure & Clinicians Study performed: Colonoscopy with cold biopsy Same procedure as scheduled: Yes Indications: Screening Surgeon: Ayush Chaudhari Procedure Notes SCOAP/Timeout: Performed Procedure in detail: The patient was placed in the left lateral decubitus position and underwent IV sedation directed by the surgeon consisting of fentanyl and Versed. Digital exam was remarkable for some small external tags. Prostate normal to palpation. The scope was inserted and advanced through the rectum into the sigmoid, descending, transverse, and ascending colon. Occasional diverticulosis was noted. The cecum was reached identified by the ileocecal valve and the appendiceal opening. The ileocecal valve was successfully cannulated. The terminal ileum was normal in appearance. The scope was gradually brought out. One Polyp was found at 65 cm from the anal verge. It was very small. Was biopsied and removed.. The scope ultimately was retroflexed in the rectum. The appearance was remarkable for some minor scarring. There were no ulcerations.. The scope was removed and the patient tolerated the procedure well. The prep was excellent. Scope withdrawal time: 8 minutes(9 total) Sedation minutes: 18 Findings: diverticulosis and polyp (One small polyp) Specimen(s): other (Follow-up) Complications: none Post-procedure Recommendations: Colonscopy in 5 years (If the polyp is not the or plastic(i. e. Not adenomatous) 10 years would be more appropriate), High fiber diet and Start medication(s) (Consider Metamucil daily) Follow up: as needed Disposition: PACU
[2020-05-05 09:09] VITALS: BP 121/72; PULSE 72; RESP 11; TEMP 37.1; O2SAT 98
[2020-05-05 09:12] VITALS: PULSE 70; RESP 13; O2SAT 98
[2020-05-05 09:14] VITALS: BP 115/66; PULSE 67; RESP 17; O2SAT 98
[2020-05-05 09:19] VITALS: BP 118/77; PULSE 72; RESP 12; O2SAT 97
== END 2020-05-05 09:34 | disposition home or self-care (01) ==
PROVIDERS: Family Provider Orthopaedic Surgery; PCP Orthopaedic Surgery; Referring Provider Orthopaedic Surgery; Visit Provider Specialist
PROC: 0DJD8ZZ Inspection of Lower Intestinal Tract, Via Natural or Artificial Opening Endoscopic (ICD-10-PCS; CPT 45378; principal; 2020-05-05 08:30)
DX: Z12.11 Encounter for screening for malignant neoplasm of colon (principal); I10 Essential (primary) hypertension; K57.30 Diverticulosis of large intestine without perforation or abscess without bleeding; K51.40 Inflammatory polyps of colon without complications
CPT/HCPCS: 45380; 99152; J2250; J3010

== ENCOUNTER → 2020-06-02 08:59 | Outpatient (CLI) | payer OTHER, SELFPAY ==
--- NOTE | 2020-06-02 09:01 | DI.MRI.S_ITS ---
PROCEDURE: MR CERVICAL SPINE WO CON INDICATIONS: Cervicalgia TECHNIQUE: Noncontrast sagittal T1 spin echo and T2 fast spin echo, sagittal STIR, foraminal oblique sagittal T2 fast spin echo, and axial gradient echo or T2 fast spin echo through the cervical spine. COMPARISON: [facility], , C-SPINE WITHOUT CONTRAST, 08/11/2016, 19:53. [facility], , SPINE CERVICAL 2 OR 3VW, 06/09/2016, 11:11. FINDINGS: Image quality: This examination is limited by involuntary motion artifact. There is artifact associated with the metallic hardware. Alignment and Curvature: There is normal bony alignment. Bone Marrow: Marrow demonstrates normal overall signal. Spinal Cord: Visualized spinal cord has normal size and signal. No cerebellar tonsillar herniation. Paraspinous Soft Tissues: No paravertebral masses. Prevertebral soft tissues are normal in thickness. C2-C3: Mild loss of disc height is seen. Loss of disc signal is seen. Mild to moderate disc osteophyte complex is seen. Mild to moderate facet hypertrophy is seen. Mild to moderate right-sided and moderate left-sided neural foraminal narrowing can be seen. Minimal central canal narrowing is seen. These imaging findings have progressed compared to the prior study. C3-C4: The disc height is well-preserved. Loss of disc signal is seen at this level. Moderate generalized disc osteophyte complex is seen. Moderate facet joint hypertrophy is seen. There is [id number] right-sided and moderate left-sided neural foraminal narrowing seen. Moderate central canal narrowing is seen. These imaging findings have progressed compared to the prior study. C4-C5: Postoperative changes seen at this level, with an artificial disc and prominent susceptibility artifact. Moderate to severe bilateral neural foraminal narrowing can be seen. Moderate central canal narrowing is seen. When comparison is made with the prior examination, these findings are believed to be similar. C5-C6: Bony fusion is seen at this level. Mild to moderate bilateral neural foraminal narrowing can be seen. Moderate central canal narrowing is seen. When comparison is made with the prior examination, these findings are believed to be similar. C6-C7: Postoperative change can be seen at this level, with an artificial disc. At least moderate bilateral neural foraminal narrowing can be seen. Moderate central canal narrowing is seen. Compared to the prior images, these findings are believed to be similar. C7-T1: The disc height and disc signal are relatively well preserved. No significant neural foraminal or central canal narrowing can be seen. IMPRESSION: Postoperative changes are seen, with artificial discs at C4-C5 and C6-C7, with associated susceptibility artifact. There is bony fusion seen at C5-C6. Multiple levels of degenerative change are seen, which have progressed at C2-C3 and C3-C4 compared to 2017. Dictated by: Bubba Santos M.D. on 06/02/2020 at 9:15 Approved by: Bubba Santos M.D. on 06/02/2020 at 9:20
== END ==
PROVIDERS: Family Provider Orthopaedic Surgery; PCP Orthopaedic Surgery; Referring Provider Family Medicine; Visit Provider Family Medicine
DX: M54.2 Cervicalgia (principal); M47.812 Spondylosis without myelopathy or radiculopathy, cervical region; Z98.1 Arthrodesis status
CPT/HCPCS: 72141

== ENCOUNTER → 2020-06-25 16:55 | Outpatient (CLI) | payer OTHER, SELFPAY ==
--- NOTE | 2020-06-25 16:57 | DI.MRI.S_ITS ---
PROCEDURE: MR ANKLE LT WO CON INDICATIONS: ARTHOPATHIES TECHNIQUE: Noncontrast sagittal T1 spin echo and T2 fast spin echo with fat saturation, axial proton density fast spin echo and T2 fast spin echo with fat saturation, coronal T1 spin echo and T2 fast spin echo with fat saturation through the ankle/hindfoot. COMPARISON: None. FINDINGS: Image quality: Susceptibility artifacts from medial malleolus surgical hardware is seen slightly limits evaluation of medial structures. Bones and joints: Prior fixation of medial malleolus is seen with surgical hardware in place. No gross acute fracture or dislocation. Marrow edema involving posterior talar dome is seen concerning for small osteochondral lesion measures 5 mm in size. There is also likely osteochondral lesion in the adjacent anterior tibial plafond measures 7 x 5 mm in size. Osteoarthritic changes are noted in tibiotalar joint and subtalar joint. Mild osteoarthritic changes are noted throughout midfoot joints. Small amount of tibiotalar joint effusion is seen. Medial structures: The posterior tibialis, flexor digitorum longus, and flexor hallucis longus tendons are grossly intact. The posterior tibial neurovascular bundle appears normal within the tarsal tunnel, without extrinsic mass effect. Deltoid ligament and spring ligament are grossly intact. Lateral structures: The anterior talofibular, calcaneofibular, and posterior talofibular ligaments appear mildly thickened with intrasubstance T2 hyperintense signal. More superiorly, the anterior and posterior tibiofibular ligaments also appears mildly thickened. The tibiofibular syndesmosis is normal in width at 2 mm or less. The peroneus longus and brevis tendons demonstrate normal location and morphology. Adjacent bony peroneal tubercle and retrotrochlear prominence are normal in size. The sinus tarsi demonstrates normal fatty signal, without edema, fibrosis, or cyst formation. Visualized sinus tarsi components (cervical ligament, interosseous talocalcaneal ligament, roots of the inferior extensor retinaculum) appear normal. The calcaneonavicular and calcaneocuboid components of the bifurcate ligament appear intact. The dorsal calcaneocuboid ligament appears intact. Anterior structures: The tibialis anterior, extensor hallucis longus, and extensor digitorum longus tendons appear intact. The dorsal talonavicular ligament appears intact. Posterior and plantar structures: Achilles tendon is intact. Medial and lateral bands of the plantar fascia are of normal thickness. No abductor digiti quinti muscle atrophy to suggest Hinton neuropathy. IMPRESSION: 1. Postsurgical changes in medial malleolus with susceptibility artifacts. Osteoarthritic changes are noted throughout hindfoot and midfoot joints more prominent at tibiotalar joint with suggestion of subcentimeter osteochondral injuries involving posterior weight-bearing portion of talar dome and anterior weight-bearing portion of tibial plafond as described above. Small amount of joint effusion. No gross acute fracture or dislocation. 2. Medial ankle tendons and ligaments are grossly intact. 3. Suggestion of low-grade sprain/partial-thickness tear involving lateral ankle ligaments. No full-thickness lateral ankle ligament rupture. Rest of the ankle tendons are intact. Dictated by: Yohannes Sanches M.D. on 06/26/2020 at 9:11 Approved by: Yohannes Sanches M.D. on 06/26/2020 at 9:22
== END ==
PROVIDERS: Family Provider Orthopaedic Surgery; PCP Family Medicine; Referring Provider Podiatrist; Visit Provider Podiatrist
DX: M12.572 Traumatic arthropathy, left ankle and foot (principal)
CPT/HCPCS: 73721

== ENCOUNTER → 2020-07-15 13:26 | Outpatient (CLI) | payer OTHER, SELFPAY ==
[2020-07-15 14:50] LABS: COVID19 -Nasal RAPID Negative (Negative)
== END ==
PROVIDERS: Family Provider Orthopaedic Surgery; PCP Family Medicine; Visit Provider Student in an Organized Health Care Education/Training Program
DX: Z01.812 Encounter for preprocedural laboratory examination (principal); Z20.822 Contact with and (suspected) exposure to COVID-19
CPT/HCPCS: 87635

== ENCOUNTER 2020-07-16 06:19 | Day surgery (SDC) | payer OTHER, SELFPAY ==
[2020-07-10 14:31] VITALS: BMI 29.4
[2020-07-16] VITALS (7 sets, daily range): BP systolic 124–138; BP diastolic 80–91; PULSE 71–88; RESP 12–20; TEMP 36.2–36.7; O2SAT 94–98; BMI 23.1
[2020-07-16] MEDS: LACTATED RINGERS 1,000 ML 42 ML IV (06:58)
--- NOTE | 2020-07-16 07:46 | PM.PREOP ---
Pre-operative Note COVID-19 COVID-19 status: Negative Result date/Date tested (Pos, Neg/Pending): 07/15/20 Interval Note History & Physical reviewed/Exam performed by Physician: Yes Changes to H&P: No
--- NOTE | 2020-07-16 07:47 | PM.OP.1 ---
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 Left anterior tibiotalar joint exostectomy 2. Left medial ankle excision fracture fragment Same procedure as scheduled: Yes Indications: Pain and stiffness to left ankle. Conservative measures failed to alleviate his pain and he wished to have surgical intervention at this time. Surgeon: Adelina Lomeli Click Yes if Unassisted: Yes Anesthesia Type: General Operative Notes Closure Type: primary Specimen(s): none sent Estimated Blood Loss (mL): 30 Blood products transfused: none Tourniquet time (min): 75 Procedure in detail: The patient was brought to the operating room and placed on the operating table in the supine position. Tourniquet was placed about theleft thight. Patient is well-padded and appropriately supported. After induction of general anesthesia the left foot and ankle were prepped and draped in the usual aseptic manner. The tourniquet was inflated. Incision was made over the anteromedial tibiotalarl joint. The incision was deepened through subcutaneous tissues being careful to identify and retract all vital neurovascular structures. All bleeders were cauterized and ligated as necessary. The capsule was entered dorsally at the joint and this exposed the spurring of the anterior dorsal joint, and appeared that the overwhelming majority was actually coming from the talus rather than the tibial side. No joint mice were seen in the ankle joint but I did see post surgical changes along the medial side from the prior medial take down and OATS procedure. The large lip of spurring on the talus at the start of the proximal neck was reduced with a rongeur and also from the anteromedial tibial. This was then smoothed with a manual rasp. The ankle was brought through dorsiflexion and plantarflexion motion and able to do so without clicking or popping. A second incision was made on the medial ankle just distal to the tip of the medial malleolus. Care taken to identify and retract all neurovascular structures. All bleeders were cauterized and ligated as necessary. At the distal portion of what appeared to be scarred, fibrous tissue, not appearing to be deltoid lig, an ossicle was seen on it's own, measuring 1.4 x 0.8 x 0.5 cm. It was easily removed and passed from the field, and had not been attached to any bone. The tourniquet was deflated, a prompt hyperemic response was seen to the foot/ankle. The areas were irrigated with copious amounts normal sterile saline. Deep and subcutaneous closure was closed performed with Vicryl. Additional time was spent with cautery and vicryl repair to the vein of the dorsal anterior arch pedal vein which was treated gently in the field but did undergo manipulation due to the needs of the surgeon's access. Nylon suture used to close the skin. The foot was dressed with a lightly compressive sterile dressing and posterior splint in alignment. Patient was then transferred to PACU with vital signs stable. Complications: none Post-operative Condition: stable Disposition: PACU Plan for aftercare: Following a period of postoperative monitoring, the patient be discharged home on written and oral postoperative instructions including keeping the dressing dry and intact, no ambulation on the surgical foot, icing and elevating the foot when seated home. DVT prevention techniques have been reviewed. For the 1st postoperative visit the dressing will be changed and close to the 3rd postoperative week we will likely remove the sutures. Continue NWB until advanced by surgeon.
[2020-07-16] MEDS: CEFAZOLIN 2 GM/100 ML FROZ.PIGGY IV (07:49)
--- NOTE | 2020-07-16 08:23 | SUR.OPER ---
Addendum entered by Miguelina Lay R.N. 07/16/20 08:24: safety belt at abdomen, left leg prepped and draped in sterile field Original Note: Supine on padded OR bed, head on pillow, arms secured on padded arm boards at <90 degrees abduction, legs uncrossed, safety belt at thigh, tape over blanket over lower legs.
[2020-07-16] MEDS: BUPIVACAINE 0.5% (PF) VIAL 30 ML INJ (08:39)
[2020-07-16] MEDS: LIDOCAINE 2% INJ MDV 20 ML INJ (08:40)
[2020-07-16] MEDS: OXYCODONE/ACETAMINOPHEN 5/325 TABLET 1 TAB PO (10:40)
--- NOTE | 2020-07-16 10:44 | SUR.PHASEI ---
Pt received to PACU after general anesthesia. Airway patent, self maintained. Report from FRANKIE Mcintyre and Dr De Jesus.
== END 2020-07-16 11:10 | disposition home or self-care (01) ==
PROVIDERS: Family Provider Orthopaedic Surgery; PCP Family Medicine; Referring Provider Family Medicine; Visit Provider Podiatrist
PROC: (CPT 27610; principal; 2020-07-16 07:45)
DX: M12.572 Traumatic arthropathy, left ankle and foot (principal); M25.572 Pain in left ankle and joints of left foot
CPT/HCPCS: 27610; 27607; J0690; J1100; J2250; J2405; J2704; J3010

== ENCOUNTER 2020-07-23 06:35 | Emergency (ER) | payer OTHER, SELFPAY ==
[2020-07-23] VITALS (7 sets, daily range): BP systolic 112–130; BP diastolic 69–79; PULSE 86–109; RESP 16–21; TEMP 37.7; O2SAT 93–98; BMI 26.6
--- NOTE | 2020-07-23 07:12 | DI.RAD.S_ITS ---
PROCEDURE: XR CHEST 1V INDICATIONS: short of breath TECHNIQUE: One view of the chest was acquired. [facility] 10:57. FINDINGS: Surgical changes and devices: None. Lungs and pleura: Lungs are clear. No pleural effusions or pneumothorax. Mediastinum: Mediastinal contours appear normal. Heart size is normal. Bones and chest wall: No suspicious bony lesions. Overlying soft tissues appear unremarkable. IMPRESSION: No acute cardiopulmonary disease. Dictated by: Eleanor Henderson M.D. on 07/23/2020 at 8:00 Approved by: Eleanor Henderson M.D. on 07/23/2020 at 8:01
--- NOTE | 2020-07-23 07:18 | ED.EXTPRO ---
HPI - Extremity Problem General Chief complaint: Extremity Problem,Nontraumatic Stated complaint: surgery 1wk ago, fever, congestion, pain Time Seen by Provider: 07/23/20 07:06 Source: patient Mode of arrival: Wheelchair Limitations: no limitations History of Present Illness HPI Narrative: Patient is a 60-year-old male is who presents 7 days postoperative his left ankle surgery with increased left ankle pain, low-grade fever cough. He states that his fever cough and congestion started last evening. He says he occasionally gets some cough and congestion however not typically fever. He has a low-grade fever now 100 last dose of Tylenol was at about 430. He also has mild headache which is relieved with medication. He denies any shortness of breath, orthopnea, chest pain, nausea or vomiting. He states his cough is mildly productive but clear phlegm. He has no abdominal pain or painful or frequent urination. He also states that he is having increasing left ankle pain from 2 days ago he saw the prosthetic person who fitted him for his boot he says that his foot was jammed into the boot and that he has had increased left ankle pain since then. MD Complaint: extremity pain Location: left Related Data Home Medications Medication Instructions Recorded Confirmed aspirin 81 mg PO QDAY #0 12/14/15 07/16/20 lisinopril 10 mg PO DAILY #0 12/14/15 07/16/20 ibuprofen 400 mg PO BID #0 08/04/16 07/16/20 acetaminophen 325 mg PO Q4H PRN #0 09/16/16 07/16/20 atorvastatin 40 mg PO DAILY 04/26/18 07/16/20 oxycodone-acetaminophen 1 tab PO BEDTIME PRN 04/26/18 07/16/20 Previous Rx's Medication Instructions Recorded duloxetine [Cymbalta] 30 mg PO SEE INSTRUCTIONS PRN #30 08/04/16 cap doxycycline hyclate 100 mg PO BID #14 cap 07/23/20 ketorolac 10 mg PO TID PRN #10 tab 07/23/20 Allergies Allergy/AdvReac Type Severity Reaction Status Date / Time ciprofloxacin [From CIPRO] Allergy Severe RASH, Verified 07/16/20 06:41 ITCHING ketamine Allergy Severe Confusion Verified 07/16/20 07:19 metronidazole [METRONIDAZOLE] Allergy Mild RASH, Verified 07/16/20 06:41 ITCHING Review of Systems Review of Systems ROS Unobtainable: All systems reviewed & are unremarkable except as noted in HPI and below Constitutional Constitutional: Reports body ache(s), Reports chills, Reports fatigue, Reports fever(s), Denies frequent falls and Reports headache(s) ENT Ears, Nose, Mouth, and Throat: Denies change in voice, Denies dizziness, Reports headache(s), Denies neck pain and Denies sore throat Cardiovascular Cardiovascular: Denies chest pain, Denies irregular heart rhythm, Denies lightheadedness, Denies palpitations, Denies dyspnea, Denies dyspnea on exertion and Denies orthopnea Respiratory Respiratory: Reports as per HPI, Reports chest congestion, Reports cough, Denies dyspnea and Denies dyspnea on exertion Gastrointestinal Gastrointestinal: Denies abdominal pain, Denies change in bowel habits, Denies diarrhea, Denies nausea and Denies vomiting Musculoskeletal Musculoskeletal: Denies back pain, Denies neck pain and Denies numbness Integumentary/Breasts Skin/Breast: Denies pruritus, Denies erythema, Denies rash and Denies wounds Neurologic Neurologic: Denies behavioral changes, Denies confusion, Denies dizziness, Denies frequent falls, Reports headache(s) and Denies numbness Psychiatric Psychiatric: Denies behavioral changes and Denies confusion Endocrine Endocrine: Reports fatigue and Denies palpitations Patient History Medical History Diverticulosis HLD (hyperlipidemia) Hypertension IBS (irritable bowel syndrome) Seasonal allergies Surgical History History of open reduction and internal fixation (ORIF) procedure History of surgery Hx of fusion of cervical spine (1998) Hx of fusion of cervical spine (12/30/15) Hx of right knee surgery Social History household members: spouse Smoking Status: Former smoker alcohol intake: former Smoking Status: Former smoker alcohol intake frequency: 0-2 drinks per day Substance Use Type: does not use Exam Initial Vital Signs Initial Vital Signs: Vital Signs Pulse Rate 109 H 07/23/20 06:42 Blood Pressure 130/78 07/23/20 06:42 Pulse Oximetry 96 07/23/20 06:42 GENERAL: 60-year-old male severe slightly diaphoretic HEENT: Head atraumatic,EOMI, pupils reactive, face symmetric, [moist] mucous membranes CARDIOVASCULAR: Regular rate and rhythm without murmurs, rubs or gallops. RESPIRATORY: No respiratory distress he does have coarse breath sounds on the left no wheezing ABDOMEN: Soft, nontender. Normoactive bowel sounds all 4 quadrants. No guarding or rebound. EXTREMITIES: Normal range of motion, no clubbing or edema. Neurovascularly intact Left ankle dressing is removed no erythema or sign of infection postoperative changes noted NEUROLOGICAL: Alert and oriented x4.Normal gait and speech. SKIN: Warm, dry, no laceration, no petechiae, no rashes or lesions. Course Orders Ordered: ED Orders 07/23/20 07:10 Complete Blood Count AUTO DIFF Stat Comprehensive Metabolic Panel Stat Lactate (Lactic Acid) Stat NT-proBNP (BNP-Adult 18+) Stat Procalcitonin Stat Troponin & CK Cardiac Panel Stat 07/23/20 07:12 XR chest 1V Stat 07/23/20 07:15 COVID19 -Nasal swab/Pre-Proc Stat 07/23/20 07:27 XR ankle LT min 3V Stat 07/23/20 07:30 EKG-12 Lead Stat 07/23/20 07:40 Urinalysis and Microscopic Stat 07/23/20 08:30 Blood Culture Stat Discontinued Medications Sodium Chloride (Normal Saline 0.9%) 1,000 mls @ 200 mls/hr IV CONT ROSSY Last Infusion: 07/23/20 09:07 Dose: 0 mls/hr Documented by: Admin: 07/23/20 07:28 Dose: 200 mls/hr Documented by: ENMA Ketorolac Tromethamine (Ketorolac 30 Mg/Ml Vial) 15 mg IV NOW ONE Stop: 07/23/20 07:30 Last Admin: 07/23/20 07:32 Dose: 15 mg Documented by: ENMA Vital Signs Vital signs: Vital Signs - 8 hr 07/23/20 06:42 07/23/20 06:45 07/23/20 07:00 Temperature 100 F H Pulse Rate 109 H 108 H 104 H Respiratory Rate 21 Blood Pressure 130/78 130/78 123/74 Pulse Oximetry 96 95 98 07/23/20 07:30 07/23/20 08:00 07/23/20 08:30 Temperature Pulse Rate 98 H 87 91 H Respiratory Rate Blood Pressure 130/79 112/69 Pulse Oximetry 94 93 96 07/23/20 08:55 Temperature Pulse Rate 86 Respiratory Rate 16 Blood Pressure 118/73 Pulse Oximetry 96 MDM - Extremity (Nontraumatic) Lab Data Result diagrams: 07/23/20 07:10 07/23/20 07:10 Labs: Lab Results 07/23/20 07/23/20 07/23/20 Range/Units 07:10 07:10 07:10 WBC 16.0 H (4.5-11.0) X10^3/uL RBC 4.99 (4.5-5.9) X10^6/uL Hgb 14.5 (13.5-17.5) g/dL Hct 42.0 (41-53) % MCV 84.2 (80-100) fL MCH 29.1 (26-34) PG MCHC 34.5 (30-36) % RDW 13.4 (11.6-14.8) % Plt Count 172 (150-400) X10^3/uL Neut % (Auto) 88.1 H (50-75) % Lymph % (Auto) 4.5 L (25-40) % [place] % (Auto) 6.9 (3-14) % Eos % (Auto) 0.1 L (2-4) % Baso % (Auto) 0.4 (0-2) % Neut # (Auto) 65647 H (0238-5540) /uL Lymph # (Auto) 700 L (4898-4536) /uL [place] # (Auto) 1100 H (0-900) /uL Eos # (Auto) 0 (0-450) /uL Baso # (Auto) 100 (0-100) /uL Sodium 135 L (137-145) mmol/L Potassium 3.6 (3.4-5.1) mmol/L Chloride 101 (98-107) mmol/L Carbon Dioxide 26 (22-32) mmol/L BUN 17 (9-20) mg/dL Creatinine 0.70 (0.66-1.25) mg/dL Estimated GFR > 60.0 (>60) mL/min BUN/Creatinine Ratio 24.3 H (6-22) Glucose 126 H (80-110) mg/dL Lactate (0.7-2.1) mmol/L Calcium 9.2 (8.4-10.2) mg/dL Total Bilirubin 1.5 H (0.2-1.3) mg/dL AST 29 (17-59) IU/L ALT 34 (<50) IU/L Alkaline Phosphatase 68 (38-126) U/L Total Creatine Kinase 59 (55-170) U/L CK-MB (CK-2) TNP CK-MB (CK-2) Rel Index TNP Troponin I < 0.012 (0.01-0.034) ng/mL NT-Pro-B Natriuret Pep 27 (<125) pg/mL Total Protein 7.3 (6.3-8.2) g/dL Albumin 4.1 (3.5-5.0) g/dL Globulin 3.2 (1.7-4.1) g/dL Albumin/Globulin Ratio 1.3 (1.0-2.8) Procalcitonin 0.08 (<0.5) ng/mL Urine Color Urine Appearance Urine pH (4.5-8.0) Ur Specific [place] (1.000-1.035) Urine Protein (Negative) Urine Glucose (UA) (Negative) g/dL Urine Ketones (NEGATIVE) Urine Occult Blood (Negative) Urine Nitrate (Negative) Urine Bilirubin (NEGATIVE) Urine Urobilinogen (0.2) E.U./dL Ur Leukocyte Esterase (NEGATIVE) Urine RBC (0-5/HPF) Urine WBC (0-5/HPF) Urine Bacteria (None) Ur Culture Indicated? SARS-CoV-2 (PCR) (Negative) 07/23/20 07/23/20 07/23/20 Range/Units 07:10 07:15 07:40 WBC (4.5-11.0) X10^3/uL RBC (4.5-5.9) X10^6/uL Hgb (13.5-17.5) g/dL Hct (41-53) % MCV (80-100) fL MCH (26-34) PG MCHC (30-36) % RDW (11.6-14.8) % Plt Count (150-400) X10^3/uL Neut % (Auto) (50-75) % Lymph % (Auto) (25-40) % [place] % (Auto) (3-14) % Eos % (Auto) (2-4) % Baso % (Auto) (0-2) % Neut # (Auto) (9392-0293) /uL Lymph # (Auto) (0770-3017) /uL [place] # (Auto) (0-900) /uL Eos # (Auto) (0-450) /uL Baso # (Auto) (0-100) /uL Sodium (137-145) mmol/L Potassium (3.4-5.1) mmol/L Chloride (98-107) mmol/L Carbon Dioxide (22-32) mmol/L BUN (9-20) mg/dL Creatinine (0.66-1.25) mg/dL Estimated GFR (>60) mL/min BUN/Creatinine Ratio (6-22) Glucose (80-110) mg/dL Lactate 1.4 (0.7-2.1) mmol/L Calcium (8.4-10.2) mg/dL Total Bilirubin (0.2-1.3) mg/dL AST (17-59) IU/L ALT (<50) IU/L Alkaline Phosphatase (38-126) U/L Total Creatine Kinase (55-170) U/L CK-MB (CK-2) CK-MB (CK-2) Rel Index Troponin I (0.01-0.034) ng/mL NT-Pro-B Natriuret Pep (<125) pg/mL Total Protein (6.3-8.2) g/dL Albumin (3.5-5.0) g/dL Globulin (1.7-4.1) g/dL Albumin/Globulin Ratio (1.0-2.8) Procalcitonin (<0.5) ng/mL Urine Color Yellow Urine Appearance Clear Urine pH 8.0 (4.5-8.0) Ur Specific [place] 1.020 (1.000-1.035) Urine Protein Negative (Negative) Urine Glucose (UA) Negative (Negative) g/dL Urine Ketones Negative (NEGATIVE) Urine Occult Blood Negative (Negative) Urine Nitrate Negative (Negative) Urine Bilirubin Negative (NEGATIVE) Urine Urobilinogen 0.2 (0.2) E.U./dL Ur Leukocyte Esterase Negative (NEGATIVE) Urine RBC 0-1/hpf (0-5/HPF) Urine WBC 0-1/hpf (0-5/HPF) Urine Bacteria Occasional (0-1) (None) Ur Culture Indicated? Cult not indicated SARS-CoV-2 (PCR) Negative (Negative) Imaging Data Chest x-ray: Radiologist's Impression: PROCEDURE: XR CHEST 1V INDICATIONS: short of breath TECHNIQUE: One view of the chest was acquired. COMPARISON: [facility], , CHEST 1 VIEW, 09/16/2016, 19:32. [facility], CR, XR CHEST 2V, 04/26/2018, 10:57. FINDINGS: Surgical changes and devices: None. Lungs and pleura: Lungs are clear. No pleural effusions or pneumothorax. Mediastinum: Mediastinal contours appear normal. Heart size is normal. Bones and chest wall: No suspicious bony lesions. Overlying soft tissues appear unremarkable. IMPRESSION: No acute cardiopulmonary disease. Dictated by: Eleanor Henderson M.D. on 07/23/2020 at 8:00 Extremity x-ray #1: Radiologist's Impression: PROCEDURE: XR ANKLE LT MIN 3V INDICATIONS: post operative pain TECHNIQUE: 3 views of the ankle were acquired. COMPARISON: [facility], RG, ANKLE MIN 3VW (LT), 09/25/2015, 15:09. [facility], RG, ANKLE MIN 3VW (LT), 05/21/2020, 13:54. [facility], MR, MR ANKLE LT WO CON, 06/25/2020, 17:36. FINDINGS: Bones: No acute fractures or dislocations. Old healed fracture with internal fixation. 2 surgical screws are seen traversing the medial malleolus. Surgical screws are intact. Ankle mortise is normally aligned. There is chronic irregularity of the medial aspect of the talar dome, compatible with sequelae of old injury. Chronic periosteal calcification along the lateral aspect of the distal tibia likely sequelae of injury of the distal tibial fibular syndesmosis. There is moderate degenerative changes of the tibiotalar joint compatible with secondary osteoarthritis. Soft tissues: No tibiotalar joint effusion. Achilles tendon appears normal. IMPRESSION: 1. Old fracture with internal fixation. No acute fracture or dislocation. 2. Secondary osteoarthritis of the tibiotalar joint. Dictated by: Eleanor Henderson M.D. on 07/23/2020 at 8:02 ECG Data Attestation EKG: I personally reviewed and interpreted this ECG as follows: Prior ECG tracings: available for review Interpretation: Normal sinus rhythm rate 96 p.r. interval 130 QRS [address] changes is her T-wave inversions similar to prior EKG MDM Narrative Medical decision making narrative: Patient does have leukocytosis of 16 in some mild rales on exam however chest x-ray is clear. I suspect that he may have early pneumonia that has not appeared on chest x-ray yet. He overall does not appear septic. Will start him on antibiotics for his pneumonia with strict return precautions. At this time he is not short of breath his symptoms correlate more with infection rather than PE. He initially was mildly tachycardic with low-grade temp which improved with fluids and Toradol. He did not stay overnight in the hospital with his surgery he has been getting around with crutches. Discharge Plan Departure Patient Disposition: Home Clinical Impression: Atypical pneumonia Instructions: Atypical Pneumonia Activity Restrictions/Additional Instructions: *You have been diagnosed with atypical pneumonia *What to do: At this time based on your exam and blood work I do believe that you have an early pneumonia. I think it is reasonable to start antibiotics at this time. *Continue to take medications as directed Doxycycline 100 mg twice a day for 7 days--> SENT TO THE [facility] *Follow up with your primary care provider in 2-3 days *Return to ER if you should have increasing shortness of breath, cough, decreased fluid intake or any new, worsening or concerning symptoms Prescriptions: New doxycycline hyclate 100 mg capsule 100 mg PO BID Qty: 14 RF: 0 ketorolac 10 mg tablet 10 mg PO TID PRN (Reason: pain) Qty: 10 RF: 0 No Action aspirin 81 MG tablet,delayed release (DR/EC) 81 mg PO QDAY Qty: 0 RF: 0 lisinopril 10 MG tablet 10 mg PO DAILY Qty: 0 RF: 0 ibuprofen 400 MG tablet 400 mg PO BID Qty: 0 RF: 0 duloxetine [Cymbalta] 30 MG capsule,delayed release(DR/EC) 30 mg PO SEE INSTRUCTIONS PRNQty: 30 RF: 0 acetaminophen 325 mg Capsule 325 mg PO Q4H PRN (Reason: Pain) Qty: 0 RF: 0 atorvastatin 40 mg tablet 40 mg PO DAILY RF: 0 oxycodone-acetaminophen 5-325 mg tablet 1 tab PO BEDTIME PRN (Reason: pain) RF: 0 Referrals: Cristóbal Cm MD [Primary Care Provider] -
[2020-07-23 07:27] LABS: Add Manual Diff / Slide Review NO; Basophils Absolute Auto 100 /uL (0-100); Basophils Percent Auto 0.4 % (0-2); Eosinophils Absolute Auto 0 /uL (0-450); Eosinophils Percent Auto 0.1 % (2-4); Hemoglobin 14.5 g/dL (13.5-17.5); Lymphocytes Absolute Auto 700 /uL (1100-4500); Lymphocytes Percent Auto 4.5 % (25-40); Mean Corpuscular HGB Conc 34.5 % (30-36); Mean Corpuscular Hemoglobin 29.1 PG (26-34); Mean Corpuscular Volume 84.2 fL (80-100); Monocytes Absolute Auto 1100 /uL (0-900); Monocytes Percent Auto 6.9 % (3-14); Neutrophils Absolute Auto 14100 /uL (1500-7000); Neutrophils Percent Auto 88.1 % (50-75); Platelet Count 172 X10^3/uL (150-400); Red Blood Cell Count 4.99 X10^6/uL (4.5-5.9); Red Cell Distribution Width 13.4 % (11.6-14.8)
--- NOTE | 2020-07-23 07:27 | DI.RAD.S_ITS ---
PROCEDURE: XR ANKLE LT MIN 3V INDICATIONS: post operative pain TECHNIQUE: 3 views of the ankle were acquired. COMPARISON: [facility], RG, ANKLE MIN 3VW (LT), 09/25/2015, 15:09. [facility], RG, ANKLE MIN 3VW (LT), 05/21/2020, 13:54. [facility], MR, MR ANKLE LT WO CON, 06/25/2020, 17:36. FINDINGS: Bones: No acute fractures or dislocations. Old healed fracture with internal fixation. 2 surgical screws are seen traversing the medial malleolus. Surgical screws are intact. Ankle mortise is normally aligned. There is chronic irregularity of the medial aspect of the talar dome, compatible with sequelae of old injury. Chronic periosteal calcification along the lateral aspect of the distal tibia likely sequelae of injury of the distal tibial fibular syndesmosis. There is moderate degenerative changes of the tibiotalar joint compatible with secondary osteoarthritis. Soft tissues: No tibiotalar joint effusion. Achilles tendon appears normal. IMPRESSION: 1. Old fracture with internal fixation. No acute fracture or dislocation. 2. Secondary osteoarthritis of the tibiotalar joint. Dictated by: Eleanor Henderson M.D. on 07/23/2020 at 8:02 Approved by: Eleanor Henderson M.D. on 07/23/2020 at 8:06
[2020-07-23] MEDS: SODIUM CHLORIDE 0.9% 1,000 ML 200 ML IV (07:28)
[2020-07-23] MEDS: KETOROLAC 30 MG/ML VIAL 15 MG IV (07:32)
[2020-07-23 07:45] LABS: COVID19 -Nasal RAPID Negative (Negative)
[2020-07-23 07:54] LABS: Alanine Aminotransferase 34 IU/L (<50); Albumin 4.1 g/dL (3.5-5.0); Albumin Globulin Ratio 1.3 (1.0-2.8); Alkaline Phosphatase 68 U/L (38-126); Aspartate Aminotransferase 29 IU/L (17-59); BUN Creatinine Ratio 24.3 (6-22); Bilirubin Total 1.5 mg/dL (0.2-1.3); Blood Urea Nitrogen 17 mg/dL (9-20); Calcium 9.2 mg/dL (8.4-10.2); Carbon Dioxide 26 mmol/L (22-32); Chloride 101 mmol/L (98-107); Creatine Kinase 59 U/L (55-170); Estimated Glomerular Filt Rate > 60.0 mL/min (>60); Globulin 3.2 g/dL (1.7-4.1); Glucose 126 mg/dL (80-110); HEMOLYSIS < 15 (0-50); Potassium 3.6 mmol/L (3.4-5.1); Sodium 135 mmol/L (137-145); Total Protein 7.3 g/dL (6.3-8.2)
[2020-07-23 07:56] LABS: Lactate (Lactic Acid) 1.4 mmol/L (0.7-2.1)
[2020-07-23 08:03] LABS: NT-proBNP (BNP-Adult 18+) 27 pg/mL (<125)
[2020-07-23 08:05] LABS: Troponin I < 0.012 ng/mL (0.01-0.034)
[2020-07-23 08:10] LABS: Procalcitonin 0.08 ng/mL (<0.5)
[2020-07-23 08:17] LABS: Appearance Urine UA CLEAR; Bilirubin Urine UA NEGATIVE (NEGATIVE); Color Urine UA YELLOW; Glucose Urine UA NEGATIVE (Negative); Ketones Urine UA NEGATIVE (NEGATIVE); Leukocyte Esterase Urine UA NEGATIVE (NEGATIVE); Nitrite Urine UA NEGATIVE (Negative); Occult Blood Urine UA NEGATIVE (Negative); Protein Urine UA NEGATIVE (Negative); Urobilinogen Urine UA 0.2 E.U./dL (0.2)
[2020-07-23 08:48] LABS: Bacteria Urine Occasional (0-1); Culture Indicated Urine Cult Not Indicated; RBC Urine 0-1/HPF (0-5/HPF); WBC Urine 0-1/HPF (0-5/HPF)
== END 2020-07-23 09:09 | disposition home or self-care (01) ==
PROVIDERS: Emergency Provider Emergency Medicine; Family Provider Orthopaedic Surgery; PCP Family Medicine
DX: J18.9 Pneumonia, unspecified organism (principal); R00.0 Tachycardia, unspecified; M25.572 Pain in left ankle and joints of left foot; Z20.822 Contact with and (suspected) exposure to COVID-19
CPT/HCPCS: 36415; 71045; 73610; 80053; 81001; 82550; 83605; 83880; 84145; 84484; 85025; 87040; 87635; 93005; 93010; 96361; 96374; 99284; C9803; J1885

== ENCOUNTER → 2024-01-12 15:41 | Outpatient (CLI) | payer OTHER, SELFPAY ==
--- NOTE | 2024-01-12 15:43 | DI.CT.S_ITS ---
PROCEDURE: CT LE LT W CON INDICATIONS: ARTHRITIS OF L ANKLE TECHNIQUE: Noncontrast 3 mm axial sections acquired of the left lower extremity from the knee joint to the foot, with coronal and sagittal reformats. Dose reduction technique was utilized. COMPARISON: [facility] [place], CR, XR ANKLE 3 VIEWS WEIGHT BEARING LEFT, 01/05/2024, 14:20. FINDINGS: Image quality: Excellent. Bones: No acute fracture or dislocation. Chronic, healed medial malleolar fracture status post screw fixation with 2 screws and without hardware complication. Chronic, healed, mid fibular diaphyseal fracture with a previously displaced butterfly fragment (4/189; 5/60). Chronic, ununited and minimally displaced fracture of the lateral malleolus (4/180). Possible 0.4 cm medial talar dome osteochondral defect (4/171). Joints: Mild tibiotalar and subtalar osteoarthritis. Mild hallux valgus with bipartite lateral hallux sesamoid. Mild tricompartmental knee osteoarthritis. Muscles: Overall muscle bulk is preserved. Tendons: Mild thickening of the quadriceps and patellar tendons with enthesopathy at their patellar attachment sites (5/95). Otherwise, the visualized flexor and extensor tendons at the level of the ankle and foot are within normal limits. Achilles calcaneal enthesopathy. The Achilles tendon is otherwise within normal limits. Vessels: No aneurysmal dilatation of the visualized vasculature. Lymph nodes: No popliteal lymphadenopathy. Other soft tissues: No other acute abnormality. IMPRESSION: 1. Chronic fractures of the medial and lateral malleoli as well as the mid fibular diaphysis. 2. No acute fracture or dislocation. 3. Possible 0.3 cm posttraumatic medial talar dome osteochondral defect. 4. Mild tricompartmental knee, mild tibiotalar, and mild subtalar osteoarthritis. Dictated by: Dante Griffiths M.D. on 01/12/2024 at 17:11 Approved by: Dante Griffiths M.D. on 01/12/2024 at 17:21
--- NOTE | 2024-01-12 15:44 | EKG_ITS ---
[address] [address] [address] [address] Test Date: 2024-01-12 Pat Name: Yo Malagon Department: DEFAULT Room: Gender: Male Activities Manager: GREGG : 1960 Requested By: Order Number: [id number] Reading MD: Storm Villegas Measurements Intervals [place] Rate: 71 P: 23 NE: 132 QRS: 12 QRSD: 94 T: 18 QT: 356 QTc: 386 Interpretive Statements Normal sinus rhythm Electronically Signed On 01-16-2024 18:49:19 PST by Storm Villegas
[2024-01-12 16:53] LABS: Add Manual Diff / Slide Review NO; Basophils Absolute Auto 0 /uL (0-100); Basophils Percent Auto 0.6 % (0-2); Eosinophils Absolute Auto 100 /uL (0-450); Eosinophils Percent Auto 1.2 % (2-4); Hematocrit 44.7 % (41-53); Hemoglobin 15.6 g/dL (13.5-17.5); Lymphocytes Absolute Auto 1500 /uL (1100-4500); Lymphocytes Percent Auto 31.3 % (25-40); Mean Corpuscular HGB Conc 34.9 % (30-36); Mean Corpuscular Hemoglobin 29.6 PG (26-34); Monocytes Absolute Auto 500 /uL (0-900); Monocytes Percent Auto 9.9 % (3-14); Neutrophils Absolute Auto 2700 /uL (1500-7000); Platelet Count 169 X10^3/uL (150-400); Red Blood Cell Count 5.26 X10^6/uL (4.5-5.9); Red Cell Distribution Width 13.6 % (11.6-14.8); White Blood Cell Count 4.8 X10^3/uL (4.5-11.0)
[2024-01-12 17:11] LABS: Hemoglobin A1C% w Est Avg Glu 5.7 % (4.0-6.0)
[2024-01-12 17:13] LABS: Alanine Aminotransferase 67 IU/L (<50); Albumin Globulin Ratio 1.3 (1.0-2.8); Alkaline Phosphatase 74 U/L (38-126); Aspartate Aminotransferase 44 IU/L (17-59); BUN Creatinine Ratio 17.5 (6-22); Bilirubin Total 1.5 mg/dL (0.2-1.3); Blood Urea Nitrogen 14 mg/dL (9-20); Calcium 9.5 mg/dL (8.4-10.2); Carbon Dioxide 33 mmol/L (22-32); Chloride 102 mmol/L (98-107); Estimated Glomerular Filt Rate > 60 mL/min (>60); Globulin 3.2 g/dL (1.7-4.1); Glucose 116 mg/dL (80-110); HEMOLYSIS < 15 (0-50); Sodium 139 mmol/L (137-145); Total Protein 7.2 g/dL (6.3-8.2)
== END ==
PROVIDERS: Family Provider Orthopaedic Surgery; PCP Family Medicine; Referring Provider Orthopaedic Surgery Foot and Ankle Surgery; Visit Provider Orthopaedic Surgery Foot and Ankle Surgery
DX: M19.072 Primary osteoarthritis, left ankle and foot (principal); Z01.818 Encounter for other preprocedural examination; Z01.812 Encounter for preprocedural laboratory examination; R73.9 Hyperglycemia, unspecified; M20.12 Hallux valgus (acquired), left foot; M17.12 Unilateral primary osteoarthritis, left knee; S82.842S Displaced bimalleolar fracture of left lower leg, sequela
CPT/HCPCS: 36415; 73700; 80053; 83036; 85025; 93005

== ENCOUNTER 2024-03-04 06:00 | Day surgery (SDC) | payer OTHER, SELFPAY ==
[2024-02-22 11:04] VITALS: BMI 29.2
--- NOTE | 2024-03-04 | DI.RAD.S_ITS ---
PROCEDURE: XR ANKLE LT MIN 3V INDICATIONS: TOTAL ANKLE TECHNIQUE: Multiple intraoperative views of the ankle were acquired. COMPARISON: [facility], , XR ANKLE LT MIN 3V, 07/23/2020, 7:32. FINDINGS: Bones: Intraoperative views during total ankle arthroplasty. IMPRESSION: Intraoperative views during total ankle arthroplasty. Hardware appears intact. Dictated by: Candido Griffin M.D. on 03/04/2024 at 14:54 Approved by: Candido Griffin M.D. on 03/04/2024 at 14:55
[2024-03-04] MEDS: GABAPENTIN 600 MG TABLET PO (06:31)
[2024-03-04] MEDS: CELECOXIB 200 MG CAPSULE PO (06:31)
[2024-03-04] MEDS: ACETAMINOPHEN 325 MG TABLET 975 MG PO (06:31)
[2024-03-04] MEDS: LACTATED RINGERS 1,000 ML 42 ML IV (06:32)
[2024-03-04 06:35] VITALS: BP 138/86; PULSE 77; RESP 13; TEMP 36.6; O2SAT 98; BMI 29.2
--- NOTE | 2024-03-04 07:17 | PM.PREOP ---
Pre-operative Note Interval Note History & Physical reviewed/Exam performed by Physician: Yes Changes to H&P: No
--- NOTE | 2024-03-04 07:33 | PM.OP.1 ---
Operative Date/Time/Diagnoses Date of procedure: 03/04/24 Time of procedure: 07:34 Pre-op diagnosis: left ankle arthritis Post-op diagnosis: same Procedure & Clinicians Procedure: ankle replacement left cpt 49576 Same procedure as scheduled: Yes Indications: 63-year-old male was left ankle arthritis, posttraumatic has exhausted conservative treatment has been indicated for total ankle arthroplasty. The risks and benefits of the procedure have been discussed with the patient and given the opportunity to ask questions. The risks of surgery include but are not limited to infection, malunion, nonunion, persistence of pain, damage to nerves and blood vessels, posttraumatic arthritis, DVT, PE, coardiopulmonary complications and . The patient expressed a thorough understanding of the risks and benefits of surgery and has elected to proceed. Consent was signed in the office. During the operation, the services of a physician surgical processor were medically indicated and necessary to provide the exposure of the operative site for the surgical procedure and to maintain the limb in a proper position to carry out the operation safely and efficiently. Without a qualified patient assistant being present this would extended the operative procedure and made the procedure technically more difficult to perform. Surgeon: Cherelle Broussard Household Appliance Assembler: Lis Wong Anesthesia Type: General, Peripheral nerve block and Local Operative Notes Findings: Left ankle arthritis Closure Type: primary Prosthetic devices, grafts, tissues, transplants, or devices: [place] 28 apex 3D total ankle Tibia arc 3 standard Talus flat 1 Poly 6 mm Estimated Blood Loss (mL): 20 Blood products transfused: none Tourniquet time (min): 100 Procedure in detail: Patient was seen in the preoperative area the site of surgery was marked informed consent confirmed this with the left leg. The anesthesiologist placed a regional block for postoperative pain control. The patient was taken to the operating room positioned supine on operative table. Ipsilateral thigh bump was placed. Well-padded thigh tourniquet was placed. The left lower extremity prepped and draped in standard sterile fashion formal time-out procedure was performed confirming the patient's side and site of surgery administration of appropriate preoperative antibiotic. All were in agreement. Attention turned to the left ankle he Esmarch was used for exsanguination tourniquet raised in the thigh to 250 mm Hg. . Attention was then turned to the total ankle replacement. standard anterior incision for total ankle replacement was made approximately 12 cm long proximally 1 cm lateral to the tibial crest and extended from above the joint to the level of the talar navicular joint. This was taken down through skin subcutaneous tissue. The SPN nerve was isolated and protected and retracted laterally. The tendon sheath for the EHL was then opened EHL and neurovascular bundle were retracted laterally. The tibialis anterior was kept its tendon sheath and retracted medially. Suppressive dissection was taken down to the tibial bone. The periosteum was reflected off of it and then the joint was opened and dissected subperiosteally as well. Once appropriate visualization was obtained the guide from the apex 3D tibia was then placed onto the bone and pinned in place. First in the medial hole and then lateral. Alignment was checked under AP and lateral fluoroscopy and was appropriate at the joint level and varus valgus and slope. Once everything was centered, our guide was secured. The drill holes for the arc tibia were then drilled with a separate sets cleaning the drill between them. This was set up for a 3 standard tibia. Then attention was turned to a coupled cut for the talus. A flat dome talus cut block was secured checked under fluoroscopy and then cut. Next the talus and tibia bone blocks were removed. Sagittal and reciprocal saw were used to clean up the talus cut and make sure the gutters were clear. Once this was removed adequately the spacer blocks were applied and the trials. The tibia was prepped with the peg holes was drilled using the 90 degree angle drill. Care was taken to make sure the implants laid flat. The final tibial tray was impacted place. And the peg holes talar implant were drilled as well. Once this was completed the final 1 tibial implant was selected and impacted impacted in place. Trial polys were used. The 6 mm poly was felt to have excellent stability and maintenance of range of motion. The final size 6 mm poly was opened and then placed. Ankle was stable on varus and valgus stress without any significant tilting. Range of motion was 40? of plantar flexion 10? of dorsiflexion. With a good 10? of dorsiflexion it was not felt that a gastroc recession would be required at this time. Appropriate impaction of the implants was achieved. Wound was irrigated and closed in layered fashion with 0 Vicryl in the capsule 2-0 PDS in the extensor retinaculum and 4-0 Monocryl subcutaneous and 3-0 nylon sutures in the skin. Additional 20 cc of 0.25% Marcaine with epinephrine were used for local anesthetic. A sterile dressing was placed with Xeroform gauze Webril and a bulky Veronica splint in neutral position with a stirrup and posterior slab. The patient was woken from anesthesia taken to the recovery room in good condition there were no immediate complications from this procedure. Counts were correct. Complications: none Post-operative Condition: stable Disposition: PACU Plan for aftercare: nwenrique lle--may touchdown with the weight of the leg for balance, aspirin 325mg daily for 6 wks. We will follow up in 2-3 weeks for suture removal radiographs and progressive weight-bearing in the boot.
--- NOTE | 2024-03-04 08:21 | SUR.OPER ---
Supine on padded OR bed, head on pillow, arms secured on padded arm boards at <90 degrees abduction, legs uncrossed, safety belt at thigh, tape over blanket over lower legs. BUMP UNDER LEFT HIP FOR POSITIONING. RIGHT LEG SECURED WITH BLANKET AND TAPE.
--- NOTE | 2024-03-04 10:10 | SUR.OPER ---
FLURO TIME 3 MINUTES 47 SECONDS
[2024-03-04 10:45] VITALS: BP 117/74; PULSE 80; RESP 14; TEMP 37.1; O2SAT 96
[2024-03-04 10:50] VITALS: BP 99/68; PULSE 78; RESP 14; O2SAT 96
[2024-03-04 10:55] VITALS: BP 96/59; PULSE 76; RESP 16; O2SAT 97
[2024-03-04] MEDS: BUPIVACAINE 0.25% W/ EPI 30 ML VIAL INJ (10:55)
[2024-03-04 11:10] VITALS: BP 105/69; PULSE 71; RESP 14; O2SAT 98
== END 2024-03-04 11:25 | disposition home or self-care (01) ==
PROVIDERS: Family Provider Orthopaedic Surgery; PCP Family Medicine; Referring Provider Orthopaedic Surgery Foot and Ankle Surgery; Visit Provider Orthopaedic Surgery Foot and Ankle Surgery
PROC: (CPT 27702; principal; 2024-03-04 07:45)
DX: M19.079 Primary osteoarthritis, unspecified ankle and foot (principal); Z96.9 Presence of functional implant, unspecified
CPT/HCPCS: 27702; 73610; 76000; C1776; J0330; J1171; J2250; J2405; J2704; J3010

== ENCOUNTER 2024-03-17 12:10 | Emergency (ER) | payer OTHER, SELFPAY ==
[2024-03-17 12:14] VITALS: BP 156/78; PULSE 89; RESP 18; TEMP 36.9; O2SAT 100; BMI 28.3
--- NOTE | 2024-03-17 12:32 | ED_ITS ---
HPI - Recheck/Abnormal Lab/Rx <Swetha Arriola PA-C - Last Filed: 03/17/24 13:45> General Chief Complaint: Recheck/Abnormal Lab/Rx Stated Complaint: pain and swelling in ankel from surgery - Time Seen by Provider: 03/17/24 12:32 Source: patient Mode of arrival: Ambulatory History of Present Illness HPI narrative: 63-year-old male presents with left ankle pain. He underwent total arthroplasty on March 04, [address] Espinoza. He has been taking oxycodone, Tylenol and ibuprofen without relief. He states that he ran out of Toradol that seemed to help better. He is denying any new injury, he has been using his crutches, no fever, chills, calf pain, numbness or weakness of his toes. All other systems reviewed and are negative. Related Data Home Medications Medication Instructions Recorded Confirmed aspirin 81 mg tablet,delayed 81 mg PO QDAY ##0 12/14/15 07/16/20 release lisinopril 10 mg tablet 10 mg PO DAILY ##0 12/14/15 07/16/20 ibuprofen 400 mg tablet 400 mg PO BID ##0 08/04/16 07/16/20 acetaminophen 325 mg capsule 325 mg PO Q4H PRN Pain ##0 09/16/16 07/16/20 atorvastatin 40 mg tablet 40 mg PO DAILY 04/26/18 07/16/20 oxycodone-acetaminophen 5 mg-325 1 tab PO BEDTIME PRN pain 04/26/18 07/16/20 mg tablet Previous Rx's Medication Instructions Recorded duloxetine 30 mg capsule,delayed 30 mg PO SEE INSTRUCTIONS PRN #30 08/04/16 release (Cymbalta) caps doxycycline hyclate 100 mg capsule 100 mg PO BID #14 caps 07/23/20 ketorolac 10 mg tablet 10 mg PO TID PRN pain #10 tabs 07/23/20 Allergies Allergy/AdvReac Type Severity Reaction Status Date / Time ciprofloxacin [From CIPRO] Allergy Severe RASH, Verified 03/17/24 12:24 ITCHING ketamine Allergy Severe Confusion Verified 03/17/24 12:24 metronidazole [METRONIDAZOLE] Allergy Mild RASH, Verified 03/17/24 12:24 ITCHING Review of Systems <Swetha Arriola PA-C - Last Filed: 03/17/24 13:45> Review of Systems Narrative: All other systems reviewed and are negative. Patient History <Swetha Arriola PA-C - Last Filed: 03/17/24 13:45> Medical History Seasonal allergies IBS (irritable bowel syndrome) Diverticulosis HLD (hyperlipidemia) Hypertension Surgical History S/P right knee arthroscopy History of ankle surgery S/P hardware removal History of surgery History of open reduction and internal fixation (ORIF) procedure Hx of fusion of cervical spine (12/30/15) Hx of fusion of cervical spine (1998) Social History household members: spouse Smoking Status: Former smoker alcohol intake: former Smoking Status: Former smoker alcohol intake frequency: 0-2 drinks per day Exam <Swetha Arriola PA-C - Last Filed: 03/17/24 13:45> Initial Vital Signs Initial Vital Signs: Vital Signs Temperature 98.5 F 03/17/24 12:14 Pulse Rate 89 03/17/24 12:14 Respiratory Rate 18 03/17/24 12:14 Blood Pressure 156/78 H 03/17/24 12:14 Pulse Oximetry 100 03/17/24 12:14 Oxygen Delivery Method Room Air 03/17/24 12:14 Vital signs reviewed and are normal except for slight elevation in his systolic. Const General: cooperative, healthy appearing, comfortable and well developed Cardio Rate: regular rate Rhythm: regular rhythm Neuro Other: Distal neurovascular is grossly intact, 2 point discrimination to his toes, full movement of his toes on the left side. Normal capillary refill, normal temperature. Extrem Left lower extremity: normal capillary refill; no cyanosis Other: Short leg fiberglass splint intact. It was taken down, and he had immediate relief. The dressing was observed to reveal plain gauze with mild sanguinous staining, Xerofoam gauze is lifted revealing intact simple interrupted nylon sutures no redness, swelling, fluctuance, nontender, there is no heat to the area, overall the postoperative incision looks good. Mild swelling about the ankle but no discoloration. He is negative for any tenderness at the heel, Achilles, calf, negative Bam's Sign. <Miranda Page DO - Last Filed: 03/18/24 09:04> Initial Vital Signs Initial Vital Signs: Vital Signs Temperature 98.5 F 03/17/24 12:14 Pulse Rate 89 03/17/24 12:14 Respiratory Rate 18 03/17/24 12:14 Blood Pressure 156/78 H 03/17/24 12:14 Pulse Oximetry 100 03/17/24 12:14 Oxygen Delivery Method Room Air 03/17/24 12:14 Procedures <Swetha Arriola PA-C - Last Filed: 03/17/24 13:45> Orthopedic Splinting/Casting post-op ankle re-splint: Time of procedure: 13:25 Side: left Lower Extremity Injury Location: ankle Lower Extremity Immobilizer: posterior splint (fiberglass posterior & stirrup ) Other Orthopedic Equipment: crutches Post splinting neuro exam: intact Post splinting vascular exam: intact Additional Comments: New Xerofoam applied, maintained aseptic technique. Additional new Webral/bunting used, reused fiberglass post-operative splint. Course <Swetha Arriola PA-C - Last Filed: 03/17/24 13:45> Orders Ordered: Discontinued Medications Ketorolac Tromethamine (Ketorolac 30 Mg/Ml Vial) 30 mg IM NOW ONE Stop: 03/17/24 13:15 Last Admin: 03/17/24 13:20 Dose: 30 mg Documented By: ES Vital Signs Vital signs: Vital Signs - 8 hr 03/17/24 12:14 Temperature 98.5 F Pulse Rate 89 Respiratory Rate 18 Blood Pressure 156/78 H Pulse Oximetry 100 Oxygen Delivery Method Room Air <Miranda Page DO - Last Filed: 03/18/24 09:04> Orders Ordered: Discontinued Medications Ketorolac Tromethamine (Ketorolac 30 Mg/Ml Vial) 30 mg IM NOW ONE Stop: 03/17/24 13:15 Last Admin: 03/17/24 13:20 Dose: 30 mg Documented By: ES Vital Signs Vital signs: Vital Signs - 8 hr 03/17/24 12:14 Temperature 98.5 F Pulse Rate 89 Respiratory Rate 18 Blood Pressure 156/78 H Pulse Oximetry 100 Oxygen Delivery Method Room Air MDM - Recheck/Abnormal Lab/Rx <Swetha Arriola PA-C - Last Filed: 03/17/24 13:45> Imaging Data Extremity x-ray #1: My Impression: Deferred to radiologist's interpretation below. Radiologist's Impression: PROCEDURE: XR ANKLE LT MIN 3V INDICATIONS: post arthroplasty 03/04/24. Pain. No new injury. TECHNIQUE: 3 views of the ankle were acquired. COMPARISON: [facility], CR, XR ANKLE LT MIN 3V, 03/04/2024, 10:05. [facility], CR, XR ANKLE LT MIN 3V, 07/23/2020, 7:32. FINDINGS: Bones: Ankle arthroplasty and medial malleolus fixation screws. Hardware is in expected position. Calcaneal enthesopathy. Prior ghost tracks are also seen within the bone. Soft tissues: Soft tissue surrounding ossifications are seen. Soft tissue swelling. IMPRESSION: Postsurgical changes of ankle arthroplasty. Medial malleolar fixation screws also present. Hardware appears to be in similar position. Surrounding soft tissue swelling and ossifications. Calcaneal enthesopathy. Dictated by: Severiano Savage M.D. on 03/17/2024 at 12:11 Approved by: Severiano Savage M.D. on 03/17/2024 at 12:13 [facility] Narrative Medical decision making narrative: He had immediate relief once the postoperative splint was taken down, there is no clinical findings to suggest infection, no new injury. His x-rays are normal. No displacement of his hardware. He is resplinted, he feels comfortable. Neurologic exam remains intact. He is treated with Toradol 30 mg intramuscularly. Discussed at length the importance of elevation to minimize any swelling, using ice regularly over the splint and toes. Keep her follow up appointment with Dr. Espinoza if you have any recurrence or any issues please do not hesitate to return. Discharge Plan Departure Patient Disposition: Home Clinical Impression: Ankle pain, left Qualifiers: Chronicity: unspecified Qualified Code(s): M25.572 - Pain in left ankle and joints of left foot Instructions: How to Take Care of Your Splint Activity Restrictions/Additional Instructions: Please keep the splint dry, elevate as much as possible and do ice regularly throughout the day and over the splint. You may continue your previous pain management. You were given Toradol 30 mg today, I would like you to follow up with Dr. Espinoza as previously scheduled but do call her office Monday morning to let her know of your visit and see if maybe you can be seen sooner. There were no clinical findings on exam to suggest infection, your x-rays were normal, hardware remains in place. If you have any worsening symptoms please do not hesitate to come back to the emergency department. Prescriptions: No Action aspirin 81 MG tablet,delayed release (DR/EC) 81 mg PO QDAY Qty: 0 lisinopril 10 MG tablet 10 mg PO DAILY Qty: 0 ibuprofen 400 MG tablet 400 mg PO BID Qty: 0 duloxetine [Cymbalta] 30 MG capsule,delayed release(DR/EC) 30 mg PO SEE INSTRUCTIONS PRNQty: 30 0RF Patient Comments: never take acetaminophen 325 mg Capsule 325 mg PO Q4H PRN (Reason: Pain) Qty: 0 atorvastatin 40 mg tablet 40 mg PO DAILY oxycodone-acetaminophen 5-325 mg tablet 1 tab PO BEDTIME PRN (Reason: pain) Patient Comments: take 1 tablet by mouth at bedtime if needed doxycycline hyclate 100 mg capsule 100 mg PO BID Qty: 14 0RF ketorolac 10 mg tablet 10 mg PO TID PRN (Reason: pain) Qty: 10 0RF Referrals: Cristóbal Cm MD [Primary Care Provider] - Stand Alone Forms: Patient Portal/API/Survey ED Sign-out <Miranda Page DO - Last Filed: 03/18/24 09:04> Cosign ED Attending Colby Attestation: I was immediately available in the department for consultation.
--- NOTE | 2024-03-17 12:46 | DI.RAD.S_ITS ---
PROCEDURE: XR ANKLE LT MIN 3V INDICATIONS: post arthroplasty 03/04/24. Pain. No new injury. TECHNIQUE: 3 views of the ankle were acquired. COMPARISON: [facility], CR, XR ANKLE LT MIN 3V, 03/04/2024, 10:05. [facility], CR, XR ANKLE LT MIN 3V, 07/23/2020, 7:32. FINDINGS: Bones: Ankle arthroplasty and medial malleolus fixation screws. Hardware is in expected position. Calcaneal enthesopathy. Prior ghost tracks are also seen within the bone. Soft tissues: Soft tissue surrounding ossifications are seen. Soft tissue swelling. IMPRESSION: Postsurgical changes of ankle arthroplasty. Medial malleolar fixation screws also present. Hardware appears to be in similar position. Surrounding soft tissue swelling and ossifications. Calcaneal enthesopathy. Dictated by: Severiano Savage M.D. on 03/17/2024 at 12:11 Approved by: Severiano Savage M.D. on 03/17/2024 at 12:13
[2024-03-17] MEDS: KETOROLAC 30 MG/ML VIAL IM (13:20)
== END 2024-03-17 13:45 | disposition home or self-care (01) ==
PROVIDERS: Emergency Provider Physician Assistant Medical; Family Provider Orthopaedic Surgery; PCP Family Medicine
DX: M25.572 Pain in left ankle and joints of left foot (principal); Z96.662 Presence of left artificial ankle joint
CPT/HCPCS: 29515; 73610; 99283; 99284; J1885